=== PATIENT | male | born 1980 | race Caucasian/White ===

== ENCOUNTER 2016-11-21 08:00 | Emergency (ER) | payer MEDICARE, OTHER ==
[~2016-11-21] VITALS: Ht 193 cm; Wt 70.0 kg
[~2016-11-21 08:00] MED LIST: AMLO5TAB2 PO; CALC667S PO; CARV25TA2 PO; CHOL200025 PO; GLYC1TAB11 PO; INSLIS SUBQ; LIPA1CAP PO; LOPE2CAP PO; METO5TAB78 PO; NEPHVIT PO; ONDA4TAB6 PO; PANT20TA2 PO; PHOSLO PO; PROC25SU3 RC; PROM25TA14 PO; TACR1CAP8 PO
[2016-11-21 08:02] VITALS: BP 110/72; PULSE 85; RESP 16; O2SAT 100
--- NOTE | 2016-11-21 08:29 | ED.REPORT ---
HPI-General Illness Date of Service Nov 21, 2016 ED Provider: Diogo Callahan MD The patient is a 35 year old male with history of end stage renal disease on hemodialysis MWF, primary sclerosing cholangitis s/p liver transplant, diabetes mellitus type I, chronic anemia, GERD, pancreatic insufficiency, and hypertension, who presents to the emergency department with multiple complaints. Over the last 2-3 weeks he has not been himself. He has been sleeping a lot and not able to get up and complete his normal daily activities. He has also experienced nausea, vomiting, diarrhea, decreased appetite, abdominal pain, and back pain. He reports some blood in his emesis. He denies black, tarry or bloody stools. His symptoms have drastically worsened over the last 2 days. He has felt like he cannot stand up without feeling like he is going to pass out. He has been using his cane to ambulate which is not normal for him. He last dialyzed on Saturday and is due for dialysis today. Station Agent: . Nursing Notes Stated Complaint: NAUSEA/VOMITING Chief Complaint: Male Abdominal Pain Nursing Notes Reviewed: Yes Allergies: Coded Allergies: cinacalcet (Verified Allergy, Severe, ANAPHYLAXIS, 07/20/16) Sulfa (Sulfonamide Antibiotics) (Verified Allergy, Unknown, UNKNOWN, 07/20) Scheduled ([Phoslo]) 2 TAB PO TIDWM Amlodipine (Amlodipine) 5 Mg Tablet 5 MG PO ASDIRECTED Calcium Acetate (Phoslyra) 667 Mg/5 Ml Solution 667 MG PO TIDWM Cholecalciferol (Vitamin D3) (Vitamin D3) 2,000 Unit Tablet 2,000 UNIT PO DAILY Glycopyrrolate (Glycopyrrolate) 1 Mg Tablet 0.5 MG PO TID Insulin Human Lispro (HumaLOG U100 Insulin Vial) 100 Unit/Ml Unit U SUBQ SS Blood Sugar Lispro Correction <151 0 units 151-175 1 unit 176-200 2 units 201-225 3 units 226-250 4 units 251-275 5 units 276-300 6 units 301-325 7 units 326-350 8 units 351-375 9 units 376-400 10 units >400 12 units Check blood sugars before meals and at bedtime. Use correction factor only before meals. Lipase/Protease/Amylase (Sharath DOVE) 1 Each Capsule. 8 CAPSULE PO TIDWM Pantoprazole DR (Pantoprazole DR) 20 Mg Tablet.dr 20 MG PO DAILY Tacrolimus (Tacrolimus) 1 Mg Capsule 2 MG PO BID Vitamin B Complex/Vit C (Matilde-Bhavna Tablet) 1 Tab Tab 1 TAB PO DAILY Scheduled PRN Carvedilol (Carvedilol) 25 Mg Tablet 12.5 MG PO DAILY PRN PRN elevated blood pressure Loperamide (Loperamide) 2 Mg Capsule 2 MG PO Q4 PRN PRN For Diarrhea or Loose Stool Metoclopramide (Reglan) 5 Mg Tablet 10 PO ACHS PRN PRN For Nausea Ondansetron (Zofran) 4 Mg Tablet 4 MG PO Q6 PRN PRN For Nausea Prochlorperazine Maleate (Prochlorperazine Suppository) 25 Mg Supp.rect 25 MG RC PRN For Nausea/Vomiting Promethazine (Promethazine) 25 Mg Tablet 25 MG PO Q4 PRN PRN For Nausea/ Vomiting General Time Seen by MD: 08:28 Chief Complaint Multip medical complaints Hx Obtained From: Patient, Spouse Arrived By: Walk-in Sudden in Onset?: No Onset Occurred: More than a week ago... Symptom Duration: Since onset Location: : Abdomen: Back Quality: Painful Severity: Current: Pain level 6 out of 10 Severity: Maximum: Severe Recent Healthcare: No recent hospitalization, Recent doctor visit Similar Sx Previous: Yes Past Medical History Past Medical History Notes: Station Agent: Dr. Osorio Past Medical History End-stage renal disease on hemodialysis-MWF. Still produces a "good amount" of urine. Primary sclerosing cholangitis, status post liver transplant, on chronic immunosuppressants Type I diabetes mellitus. Remarkably, he says he manages this with diet alone at this time. Chronic anemia GERD Pancreatic insufficiency, chronic Hypertension Reports: Depression Past Surgical History Liver transplant 2013 at [facility] her[facility] Left arm shunt placement Family History Noncontributory Smoking History Smoker Current Status UNK Social History Other Social History: Poor social support, , Local resident Ambulatory Status Independent Review of Systems +decreased appetite Full Review of Systems Constitutional: Reports: Fatigue, Malaise GI: Reports: Abdominal pain, Anorexia, Diarrhea, Hematemesis, Nausea, Vomiting , Denies: Bloody/tarry stool, Hematochezia, Melena Musculoskeletal: Reports: Back pain Neurologic: Reports: Lightheaded, Problem walking Complete sys rev & neg: except as marked. Physical Exam Vital Signs Vital Signs Date Time Temp Pulse Resp B/P Pulse Ox O2 Delivery O2 Flow Rate FiO2 11/21/16 09:50 79 14 113/71 98 Room Air 11/21/16 08:02 36.8 85 16 110/72 100 Room Air Initial VS: Reviewed Head / Eyes: Atraumatic, Normocephalic, PERRL ENT: Mucous membranes moist, Conjunctiva normal, No scleral icterus Neck: Supple, Non-tender, Full range of motion Respiratory: Breath sounds normal, Clear to auscultation, No respiratory distress Lymphatic: No lymphadenopathy Extremities: Vascular intact, Neuro intact, No swelling, No tenderness Skin: Warm, Dry, No cyanosis Neurologic: Alert, Oriented, Nonfocal Psychiatric: Mood/affect normal, Behavior normal, Normal thought content General/Constitutional: Awake, Alert, Cooperative Cardiovascular: Heart rate NL, Regular rhythm Coarse 4/6 systolic murmur heard best at the left 2nd intercostal space. Abdomen: Soft, No guarding, No rebound, BS normoactive, No distention, No hernia, No palpable mass, No pulsatile mass Tenderness/Guarding/Rebound: Positive: Tender diffuse Lower Extremity / Pelvis / MS: Neurologic intact, Vascular intact, No edema Rectum / Perineum: No gross blood Rectal for Blood: Positive: Blood - occult heme + Brown stool present. Interpretation & Diagnostics Lab Results Interpretation Result Diagram: 11/21/16 0835 11/21/16 0835 Test 11/21/16 08:35 11/21/16 09:00 White Blood Count 5.1th/mm3 (3.8-10.1) Red Blood Count 3.44mil/mm3 (4.40-5.80) Hemoglobin 10.1g/dL (13.8-17.2) Hematocrit 30.3% (41.0-50.0) Mean Corpuscular Volume 88.1fL (81-100) Mean Corpuscular Hemoglobin 29.4pg (27.0-35.0) Mean Corpuscular Hemoglobin Concent 33.3% (32.0-37.0) Red Cell Distribution Width 14.2% (12.3-15.4) Platelet Count 103bil/L (150-400) Neutrophils (%) (Auto) 62.4% (40-74) Lymphocytes (%) (Auto) 19.1% (14-46) Monocytes (%) (Auto) 15.2% (4-12) Eosinophils (%) (Auto) 2.7% (0-5) Basophils (%) (Auto) 0.4% (0-3) Sodium Level 128mEq/L (134-144) Potassium Level 5.5mEq/L (3.5-5.2) Chloride Level 89mEq/L (97-108) Carbon Dioxide Level 15mmol/L (18-29) Blood Urea Nitrogen 62mg/dL (6-20) Creatinine 7.48mg/dL (0.76-1.27) Estimat Glomerular Filtration Rate 9mL/min (>59) Glucose Level 128mg/dL (60-99) Calcium Level 8.1mg/dL (8.5-10.1) Magnesium Level 1.9mg/dL (1.6-2.6) Total Bilirubin 0.4mg/dL (0.0-1.2) Aspartate Amino Transf (AST/SGOT) 10U/L (0-50) Alanine Aminotransferase (ALT/SGPT) 23U/L (0-44) Alkaline Phosphatase 110U/L (25-150) Total Protein 5.9g/dL (6.4-8.4) Albumin 3.4g/dL (3.4-5.0) Lipase 4U/L (13-60) Hold Lynn Top Tube Received (Received) Re-Eval/Medical Decision Source of Hx: Old records, Family Time of Eval: 09:58 Re-Evaluation/Progress Note: The patient is feeling better after the medications were given. Time of Eval: 10:36 Re-Evaluation/Progress Note: Discussed plan for discharge. All questions were addressed. Consultation : Referral / Consult Name: James Osorio MD Consulted With: Nephrology Requested Call at: 10:21 Call Returned at: 10:25 Health Physics Technician: Will see in office, Agrees with eval, Agrees with plan Note: He has a Fistulogram scheduled later this week and a parathyroidectomy in mid December. He is okay with the patient being discharged to get his dialysis. Counseled Regarding: Diagnosis, Lab results, Need for follow-up, When/why to return to ED Discharge & Departure Primary Impression: Fatigue Fatigue type: unspecified Qualified Code: R53.83 - Other fatigue Additional Impressions: Vomiting Vomiting type: unspecified Vomiting Intractability: non-intractable Nausea presence: with nausea Qualified Code: R11.2 - Nausea with vomiting, unspecified Renal failure Disposition: Home Discharge Condition All VS Reviewed: Yes Condition: Stable Additional Instructions: Thank you for entrusting us with your care today. Your labs results today are reassuring. There were no life threatening causes for your symptoms discovered today. Make sure to go to dialysis after your are discharged. Keep your appointment for the fistulogram later this week. Return to the emergency department for any new or concerning symptoms. Do not take lisinopril or carvedilol until your blood pressure is much higher. Referrals: Praveen Mccann MD (PCP) Scribe Attestation Portions of this note were transcribed by Janel Ibanez. I, Dr. Callahan personally performed the history, physical exam and medical decision-making; I reviewed and confirmed the accuracy of the information in the transcribed note. Signed by: Joelle Mahoney, 11/21/2016 at 1045. copies to: Praveen Mccann MD, Kirk H MD Nov 21, 2016 08:29 Janel Ibanez Nov 21, 2016 08:36
[2016-11-21] MEDS ORDERED: Pantoprazole 4 mg/mL 10 mL Inj IVPUSH ONE (08:30)
[2016-11-21] MEDS ORDERED: Ondansetron 2 mg/mL 2 mL Inj IVPUSH PRN (08:30)
[2016-11-21 08:49] LABS: BASOPHILS % (AUTO) 0.4 % (0-3); EOSINOPHILS % (AUTO) 2.7 % (0-5); MONOCYTES % (AUTO) 15.2 % (4-12); Mean Corpuscular Hemoglobin 29.4 pg (27.0-35.0); Mean Corpuscular Volume 88.1 fL (81-100); NEUTROPHILS % (AUTO) 62.4 % (40-74); Platelet Count 103 bil/L (150-400)
[2016-11-21] MEDS: HYDROmorphone 1 mg/mL Inj IVPUSH PRN ×2 (08:55→09:26)
[2016-11-21 09:13] LABS: Magnesium 1.9 mg/dL (1.6-2.6)
[2016-11-21 09:50] VITALS: BP 113/71; PULSE 79; RESP 14; O2SAT 98
[2016-11-21 11:34] VITALS: BP 124/80; PULSE 83; RESP 14; O2SAT 98
== END 2016-11-21 11:03 | disposition home or self-care (01) ==
LOC: SED 08:00
DX: R53.83 Other fatigue (principal); R11.2 Nausea with vomiting, unspecified; I12.0 Hypertensive chronic kidney disease with stage 5 chronic kidney disease or end stage renal disease; N18.6 End stage renal disease; E10.29 Type 1 diabetes mellitus with other diabetic kidney complication; K21.9 Gastro-esophageal reflux disease without esophagitis; D64.9 Anemia, unspecified; K83.0 Cholangitis; K86.89 Other specified diseases of pancreas; Z99.2 Dependence on renal dialysis; Z94.4 Liver transplant status; Z79.4 Long term (current) use of insulin; Z88.2 Allergy status to sulfonamides; Z88.8 Allergy status to other drugs, medicaments and biological substances
CPT/HCPCS: 36415; 80053; 82948; 83690; 83735; 85025; 96374; 96375; 99285; J1170; J2405

== ENCOUNTER 2016-12-04 15:26 | Emergency (ER) | payer MEDICARE, OTHER ==
[~2016-12-04] VITALS: Ht 193 cm; Wt 70.0 kg
[2016-12-04 15:33] VITALS: BP 145/86; PULSE 67; RESP 16; O2SAT 100
[2016-12-04] MEDS ORDERED: Ondansetron 2 mg/mL 2 mL Inj IVPUSH ONE (15:55)
[2016-12-04 16:08] LABS: BASOPHILS % (AUTO) 0.7 % (0-3); MONOCYTES % (AUTO) 8.3 % (4-12); Mean Corpuscular Volume 88.3 fL (81-100); NEUTROPHILS % (AUTO) 70.4 % (40-74); Platelet Count 124 bil/L (150-400)
[2016-12-04 16:27] LABS: Magnesium 1.6 mg/dL (1.6-2.6)
--- NOTE | 2016-12-04 16:56 | DRSVH ---
PROCEDURE: CT KUB ([id number]) INDICATIONS: Bilateral flank pain. TECHNIQUE: Noncontrast 5 mm thick sections acquired from the diaphragms to the symphysis. 5 mm thick coronal an d sagittal reformats were then performed. For radiation dose reduction, the following was used: aut omated exposure control, adjustment of mA and/or kV according to patient size. COMPARISON: [facility], CT, ABD/PELVIS W/CON ([facility]), 12/16/2014, 13:12. [facility] ([facility]), 03/06/2013, 14:23. FINDINGS: Image quality: Excellent. Lung bases: Lung bases are clear. Heart size is normal. Urinary system: Both kidneys are normal in size. There are small foci of calcification in kidneys bi laterally compatible with nonobstructive renal calculi and/or vascular calcifications. No hydronephr osis. Mild bilateral perinephric fat stranding. Both ureters appear non-dilated throughout their exp ected courses. Bladder wall is mildly thickened concentrically; no calcified bladder stones. Other solid organs: Liver and spleen are normal in size. There is gas within liver parenchyma in a branching pattern as seen on the prior examination, most likely pneumobilia. The portal vein is dilat ed. Gallbladder is surgically absent. Pancreas is atrophic with punctate calcifications consistent w ith chronic pancreatitis. No adrenal nodules. Peritoneum and bowel: Unenhanced bowel loops demonstrate normal wall thickness and caliber. No free fluid or air. Nodes and vessels: There is a mildly enlarged left para-aortic lymph node measuring 1.4 cm. Aorta and inferior vena cava are normal in caliber. There is extensive splenic artery atherosclerosis. Abdominal wall: No ventral hernias. There is diffuse bilateral edema. Pelvis: No free pelvic fluid. No inguinal hernias or adenopathy. Bones: No suspicious bony lesions. No vertebral body compression fractures. IMPRESSION: 1. There are bilateral small renal calcifications, likely secondary to combination of nonobstructive stones and vascular ossifications. No hydronephrosis. Mild bilateral perinephric stranding is present . 2. There is mild concentric bladder wall thickening suggesting cystitis. 3. Gas within the liver parenchyma in a branching pattern, which was seen on prior examinations and m ost likely caused by pneumobilia. Less likely, this could represent portal venous gas. 4. Dilated portal vein and enlarged spleen, suggesting portal hypertension. 5. Chronic pancreatitis and pancreatic atrophy. 6. Mildly enlarged retroperitoneal lymph node. This finding is nonspecific and requires clinical alessandro elation and followup. Dictated by: Maureen Gregory M.D. on 12/04/2016 at 16:46 Transcribed by: ELIJAH on 12/04/2016 at 16:56 Approved by: Maureen Gregory M.D. on 12/04/2016 at 21:37
[2016-12-04] MEDS: HYDROmorphone 0.5 mg/0.5 mL iSecure Syringe IVPUSH PRN ×2 (17:00→17:32)
--- NOTE | 2016-12-04 17:11 | ED.REPORT ---
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 He describes the pain as if someone punched his pelvis from the back. The pain does not radiate anywhere else. He has also experienced nausea, increased urinary urgency and frequency, and dysuria. His symptoms are consistent with previous kidney stones. He has never required surgery for kidney stones. He denies fever, chills, vomiting, diarrhea or hematuria. Nursing Notes Stated Complaint: URINARY PROBLEMS, SENT FROM URGENT Chief Complaint: Male Abdominal Pain Nursing Notes Reviewed: Yes Allergies: Coded Allergies: cinacalcet (Verified Allergy, Severe, ANAPHYLAXIS, 07/20/16) Sulfa (Sulfonamide Antibiotics) (Verified Allergy, Unknown, UNKNOWN, 07/20) Scheduled ([Phoslo]) 2 TAB PO TIDWM Amlodipine (Amlodipine) 5 Mg Tablet 5 MG PO ASDIRECTED Calcium Acetate (Phoslyra) 667 Mg/5 Ml Solution 667 MG PO TIDWM Cholecalciferol (Vitamin D3) (Vitamin D3) 2,000 Unit Tablet 2,000 UNIT PO DAILY Glycopyrrolate (Glycopyrrolate) 1 Mg Tablet 0.5 MG PO TID Insulin Human Lispro (HumaLOG U100 Insulin Vial) 100 Unit/Ml Unit U SUBQ SS Blood Sugar Lispro Correction <151 0 units 151-175 1 unit 176-200 2 units 201-225 3 units 226-250 4 units 251-275 5 units 276-300 6 units 301-325 7 units 326-350 8 units 351-375 9 units 376-400 10 units >400 12 units Check blood sugars before meals and at bedtime. Use correction factor only before meals. Lipase/Protease/Amylase (Zenpep DR) 1 Each Capsule.dr 8 CAPSULE PO TIDWM Pantoprazole (Pantoprazole DR) 20 Mg Tablet. 20 MG PO DAILY Tacrolimus (Tacrolimus) 1 Mg Capsule 2 MG PO BID Tamsulosin (Flomax) 0.4 Mg Capsule 0.4 MG PO DAILY Vitamin B Complex/Vit C (Matilde-Bhavna Tablet) 1 Tab Tab 1 TAB PO DAILY Scheduled PRN Carvedilol (Carvedilol) 25 Mg Tablet 12.5 MG PO DAILY PRN PRN elevated blood pressure Loperamide (Loperamide) 2 Mg Capsule 2 MG PO Q4 PRN PRN For Diarrhea or Loose Stool Metoclopramide (Reglan) 5 Mg Tablet 10 PO ACHS PRN PRN For Nausea Ondansetron (Zofran) 4 Mg Tablet 4 MG PO Q6 PRN PRN For Nausea Prochlorperazine Maleate (Prochlorperazine Suppository) 25 Mg Supp.rect 25 MG RC PRN For Nausea/Vomiting Promethazine (Promethazine) 25 Mg Tablet 25 MG PO Q4 PRN PRN For Nausea/ Vomiting General Time Seen by MD: 15:47 Chief Complaint Other (flank pain) Hx Obtained From: Patient Arrived By: Walk-in Onset Occurred: More than a week ago... 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 Osorio Past Medical History End-stage renal disease on hemodialysis-MWF. Still produces a "good amount" of urine. Primary sclerosing cholangitis, status post liver transplant, on chronic immunosuppressants Type I diabetes mellitus. Remarkably, he says he manages this with diet alone at this time. Chronic anemia GERD Pancreatic insufficiency, chronic Hypertension Kidney stones Reports: Depression Past Surgical History Liver transplant 2013 at [facility] Left arm shunt placement Family History Noncontributory Smoking History Smoker Current Status UNK Social History Other Social History: Poor social support, , Local resident Ambulatory Status Independent Review of Systems Full Review of Systems Constitutional: Denies: Chills, Fever GI: Reports: Nausea, Denies: Diarrhea, Vomiting Male: Reports Dysuria, Reports Flank pain, Reports Urinary frequency, Reports Urinary urgency, Denies Hematuria, Denies Testicular pain Musculoskeletal: Reports: Back pain, Denies: Extremity pain Complete sys rev & neg: except as marked. Physical Exam Vital Signs Vital Signs Date Time Temp Pulse Resp B/P Pulse Ox O2 Delivery O2 Flow Rate FiO2 12/04/16 18:25 36.9 68 16 138/88 98 Room Air 12/04/16 17:48 36.9 68 138/88 98 Room Air 12/04/16 15:33 36.2 67 16 145/86 100 Room Air Initial VS: Reviewed Head / Eyes: Atraumatic, Normocephalic, PERRL ENT: Mucous membranes moist, Conjunctiva normal, No scleral icterus Neck: Supple, Non-tender, Full range of motion Extremities: Vascular intact, Neuro intact, No swelling, No tenderness Skin: Warm, Dry, No cyanosis Neurologic: Alert, Oriented, Nonfocal Psychiatric: Mood/affect normal, Behavior normal, Normal thought content General/Constitutional: Awake, Alert, Cooperative Respiratory / Chest: Atraumatic, Breath sounds NL, No respiratory distress, No rales, No rhonchi, No wheezing Cardiovascular: Heart rate NL, Regular rhythm, No rubs, Pulses = bilaterally Heart Sounds / Murmur: Positive: Systolic murmur present.. (harsh) Abdomen: Atraumatic, Soft, Non-tender, No guarding, No rebound, BS normoactive , No distention, No hernia, No palpable mass, No pulsatile mass Back: Inspection NL, Full range of motion, No midline vertebral tend, No paraspinal tenderness, No CVA tenderness Upper Extremities Dialysis fistula in left forearm with a good palpable thrill, no redness or warmth. Interpretation & Diagnostics CT KUB IMPRESSION: 1. There are bilateral small renal calculi, likely secondary to combination of nonobstructive stones and vascular ossifications. No hydronephrosis. Mild bilateral perinephric stranding is present. 2. There is mild concentric bladder wall thickening suggesting cystitis. 3. Cholecystectomy. There is pneumobilia. 4. Dilated portal vein and enlarged spleen suggesting portal hypertension. 5. Chronic pancreatitis and pancreatic atrophy. 6. Mildly enlarged retroperitoneal lymph node. This finding is nonspecific and requires clinical correlation and followup. Dictated by: Maureen Gregory M.D. on 12/04/2016 at 16:46 Lab Results Interpretation Result Diagram: 12/04/16 1545 12/04/16 1545 Test 12/04/16 15:45 White Blood Count 5.6th/mm3 (3.8-10.1) Red Blood Count 3.34mil/mm3 (4.40-5.80) Hemoglobin 9.7g/dL (13.8-17.2) Hematocrit 29.5% (41.0-50.0) Mean Corpuscular Volume 88.3fL (81-100) Mean Corpuscular Hemoglobin 29.0pg (27.0-35.0) Mean Corpuscular Hemoglobin Concent 32.9% (32.0-37.0) Red Cell Distribution Width 13.9% (12.3-15.4) Platelet Count 124bil/L (150-400) Neutrophils (%) (Auto) 70.4% (40-74) Lymphocytes (%) (Auto) 16.4% (14-46) Monocytes (%) (Auto) 8.3% (4-12) Eosinophils (%) (Auto) 4.0% (0-5) Basophils (%) (Auto) 0.7% (0-3) Sodium Level 130mEq/L (134-144) Potassium Level 4.8mEq/L (3.5-5.2) Chloride Level 92mEq/L (97-108) Carbon Dioxide Level 22mmol/L (18-29) Blood Urea Nitrogen 28mg/dL (6-20) Creatinine 4.63mg/dL (0.76-1.27) Estimat Glomerular Filtration Rate 16mL/min (>59) Glucose Level 205mg/dL (60-99) Calcium Level 7.1mg/dL (8.5-10.1) Magnesium Level 1.6mg/dL (1.6-2.6) Total Bilirubin 0.3mg/dL (0.0-1.2) Aspartate Amino Transf (AST/SGOT) 16U/L (0-50) Alanine Aminotransferase (ALT/SGPT) 22U/L (0-44) Alkaline Phosphatase 124U/L (25-150) Total Protein 6.0g/dL (6.4-8.4) Albumin 3.4g/dL (3.4-5.0) Lipase 4U/L (13-60) Re-Eval/Medical Decision Med Decision/Clinical Course The patient is a 35 year old male with history of end-stage renal disease on hemodialysis MWF, 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 He describes the pain as if someone punched his pelvis from the back. The pain does not radiate anywhere else. He has also experienced nausea, increased urinary urgency and frequency, and dysuria. His symptoms are consistent with previous kidney stones. He has never required surgery for kidney stones. He denies fever, chills, vomiting, diarrhea or hematuria. Obtained UA from urgent care from earlier today. Demonstrates trace blood, otherwise no signs of infection. CT KUB IMPRESSION: 1. There are bilateral small renal calculi, likely secondary to combination of nonobstructive stones and vascular ossifications. No hydronephrosis. Mild bilateral perinephric stranding is present. 2. There is mild concentric bladder wall thickening suggesting cystitis. 3. Cholecystectomy. There is pneumobilia. 4. Dilated portal vein and enlarged spleen suggesting portal hypertension. 5. Chronic pancreatitis and pancreatic atrophy. 6. Mildly enlarged retroperitoneal lymph node. This finding is nonspecific and requires clinical correlation and followup. CBC: no leukocytosis, stable hct of 29.5, platelets 124, CMP: Na stable at 130, K 4.8, BUN 28, creatinine 4.63 stable, no significant electrolyte abnormalities. UA: unconvincing for UTI, 0-2 RBCs. Here in the emergency department the patient was afebrile, hemodynamically stable and in no apparent distress. He received Zofran for pain and hydromorphone for nausea. Serial abdominal examinations were completely benign and without any signs suggestive of an acute surgical process. He reported significant symptomatic improvement. Of note he does have bilateral small renal calculi I suspect that he may have passed some of these as his pain is quite similar to prior kidney stones. No evidence at this time of urinary tract infection. Provided with prescription for pain medication, Flomax and urology referral. Advised to use urine strainer. Prior to discharge follow-up and return precautions were reviewed in detail with the patient who verbalized understanding and agreement with the plan. The patient was discharged in stable condition. Source of Hx: Old records Time of Eval: 17:59 Re-Evaluation/Progress Note: Discussed results, diagnosis, and plan for discharge. All questions were addressed. Counseled Regarding: Diagnosis, Lab results, Need for follow-up, When/why to return to ED Discharge & Departure Primary Impression: Kidney stones Additional Impressions: Hematuria Renal colic Hemodialysis patient Disposition: Home Discharge Condition All VS Reviewed: Yes Condition: Stable Patient Instructions: Renal Colic (ED) Additional Instructions: Thank you for seeking care at the emergency room. It is difficult for us to make definitive diagnoses in the ED but we believe that you are experiencing pain related to kidney stones. Our primary goal today in the ED was to evaluate you for any life-threatening conditions. Your evaluation was reassuring. You will be discharged with a prescription for oxycodone and Flomax. Use the urine strainer to catch the stones. You should follow-up with your urologist in the next week. There were some enlarged lymph nodes seen on your CT scan as well. This should be followed up with your primary care provider. You should return to the ED immediately if you develop increased pain, inability to urinate, fevers, chills, vomiting, or any other concerning signs or symptoms. Thank you for letting us partake in your care today. Narcotic Pain Medicine You have been prescribed a narcotic for pain relief. These drugs are usually combined with acetaminophen (Tylenol#3, Percocet, Darvocet, Anexsia, Vicodin) or aspirin (Empirin#3, Percodan, Synalogs-DC) for increased effect. Narcotics act on the central nervous system to reduce pain; they also impair mental alertness and physical abilities. We advise you not to drink alcohol, drive a car, or operate dangerous equipment when you are taking these drugs. You can lessen stomach irritation from your medicine by taking it with meals or a full glass of water. Common side effects of narcotics are: Nausea and vomiting, heartburn, constipation, dizziness, sleepiness, and mood changes. If you have bothersome side effects or symptoms of an allergic reaction (itching, hives, rash), stop taking your medicine and call your doctor or the emergency room right away. Please keep your narcotic medicine well out of the reach of children. Referrals: Praveen Mccann MD (PCP) Scribe Attestation Portions of this note were transcribed by Janel Ibanez. I, Dr. Guthrie personally performed the history, physical exam and medical decision-making; I reviewed and confirmed the accuracy of the information in the transcribed note. Signed by: Joelle Mahoney, 12/04/2016 at 1815. copies to: Praveen Mccann MD, Beck O MD Dec 04, 2016 17:11 Janel Ibanez Dec 04, 2016 17:36
[2016-12-04 17:48] VITALS: BP 138/88; PULSE 68; O2SAT 98
[2016-12-04] MEDS ORDERED: TAMS0.4C98 PO (18:01)
[2016-12-04 18:25] VITALS: BP 138/88; PULSE 68; RESP 16; O2SAT 98
== END 2016-12-04 18:27 | disposition home or self-care (01) ==
LOC: SED 15:26
DX: N20.0 Calculus of kidney (principal); I12.0 Hypertensive chronic kidney disease with stage 5 chronic kidney disease or end stage renal disease; E10.22 Type 1 diabetes mellitus with diabetic chronic kidney disease; N18.6 End stage renal disease; K21.9 Gastro-esophageal reflux disease without esophagitis; Z99.2 Dependence on renal dialysis; Z79.4 Long term (current) use of insulin; Z88.2 Allergy status to sulfonamides; Z88.8 Allergy status to other drugs, medicaments and biological substances
CPT/HCPCS: 36415; 74176; 80053; 83690; 83735; 85025; 96374; 96375; 96376; 99285; J1170; J2405

== ENCOUNTER 2017-01-06 07:58 | Emergency (ER) | payer MEDICARE, OTHER ==
[~2017-01-06] VITALS: Ht 193 cm; Wt 71.2 kg
[2017-01-06] VITALS (16 sets, daily range): BP systolic 103–195; BP diastolic 60–102; PULSE 70–109; RESP 15–42; O2SAT 80–100
[~2017-01-06 07:58] MED LIST changes: +TAMS0.4C98 PO
--- NOTE | 2017-01-06 08:04 | ED.REPORT ---
HPI-Dyspnea / Wheezing Date of Service January 06, 2017 ED Provider: 36 y/o male with a hx of kidney failure, critical aortic stenosis, DM and HTN presents to the ED complaining of SOB, onset this morning. Pt went for dialysis on Saturday and was feeling fine until this morning. Pt also had a parathyroidectomy last week. Associated sx include productive cough with pink sputum and diaphoresis. He denies abdominal pain and dysuria. As per his mother , the pt is able to urinate once a day. Pt has an appointment at to discuss surgery for aortic stenosis. Nursing Notes Stated Complaint: HARD TIME BREATHING Nursing Notes Reviewed: Yes Allergies: Coded Allergies: cinacalcet (Verified Allergy, Severe, ANAPHYLAXIS, 07/20/16) Sulfa (Sulfonamide Antibiotics) (Verified Allergy, Unknown, UNKNOWN, 07/20) Scheduled ([Phoslo]) 2 TAB PO TIDWM Amlodipine (Amlodipine) 5 Mg Tablet 5 MG PO ASDIRECTED Calcium Acetate (Phoslyra) 667 Mg/5 Ml Solution 667 MG PO TIDWM Cholecalciferol (Vitamin D3) (Vitamin D3) 2,000 Unit Tablet 2,000 UNIT PO DAILY Glycopyrrolate (Glycopyrrolate) 1 Mg Tablet 0.5 MG PO TID Insulin Human Lispro (HumaLOG U100 Insulin Vial) 100 Unit/Ml Unit U SUBQ SS Blood Sugar Lispro Correction <151 0 units 151-175 1 unit 176-200 2 units 201-225 3 units 226-250 4 units 251-275 5 units 276-300 6 units 301-325 7 units 326-350 8 units 351-375 9 units 376-400 10 units >400 12 units Check blood sugars before meals and at bedtime. Use correction factor only before meals. Lipase/Protease/Amylase (Zenpep ) 1 Each Capsule. 8 CAPSULE PO TIDWM Pantoprazole (Pantoprazole ) 20 Mg Tablet. 20 MG PO DAILY Tacrolimus (Tacrolimus) 1 Mg Capsule 2 MG PO BID Tamsulosin (Flomax) 0.4 Mg Capsule 0.4 MG PO DAILY Vitamin B Complex/Vit C (Matilde-Bhavna Tablet) 1 Tab Tab 1 TAB PO DAILY Scheduled PRN Carvedilol (Carvedilol) 25 Mg Tablet 12.5 MG PO DAILY PRN PRN elevated blood pressure Loperamide (Loperamide) 2 Mg Capsule 2 MG PO Q4 PRN PRN For Diarrhea or Loose Stool Metoclopramide (Reglan) 5 Mg Tablet 10 PO ACHS PRN PRN For Nausea Ondansetron (Zofran) 4 Mg Tablet 4 MG PO Q6 PRN PRN For Nausea Prochlorperazine Maleate (Prochlorperazine Suppository) 25 Mg Supp.rect 25 MG RC PRN For Nausea/Vomiting Promethazine (Promethazine) 25 Mg Tablet 25 MG PO Q4 PRN PRN For Nausea/ Vomiting General Time Seen by MD: 08:03 Chief Complaint Shortness of breath Hx Obtained From: Patient Arrived By: Walk-in Sudden in Onset?: Yes Onset Occurred: Just prior to arrival Symptom Duration: Since onset Severity: Current: No pain currently Severity: Maximum: No pain Recent Healthcare: Recent doctor visit Similar Sx Previous: No Past Medical History 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 Still produces a "good amount" of urine. Primary sclerosing cholangitis, status post liver transplant, on chronic immunosuppressants Type I diabetes mellitus. Remarkably, he says he manages this with diet alone at this time. Chronic anemia GERD Pancreatic insufficiency, chronic Hypertension Kidney stones Reports: Depression Past Surgical History Liver transplant 2013 at Ventral hernia Left arm shunt placement Family History Noncontributory Smoking History Smoker Current Status UNK Social History Other Social History: Poor social support, , Local resident Ambulatory Status Independent Review of Systems Reports: Productive cough, pink Respiratory: Reports: Shortness of breath Skin: Reports Diaphoresis Complete sys rev & neg: except as marked. GI: Denies: Abdominal pain Female: Denies: Dysuria Physical Exam + AV fistula on left arm. Initial Vital Signs Vital Signs (First) Date Time Temp Pulse Resp B/P Pulse Ox O2 Delivery O2 Flow Rate FiO2 01/06/17 08:06 36.5 109 38 195/94 80 Nasal Cannula 6 01/06/17 10:04 100 Initial VS: Reviewed Head / Eyes: Atraumatic, Normocephalic, PERRL Abdomen / GI: Soft, Non-tender, No guarding, No rebound, No distention Extremities: Vascular intact, Neuro intact, No swelling, No tenderness Neurologic: Alert, Oriented, Nonfocal General/Constitutional: Awake, Alert Distress / Hydration: Positive: Distress severe Pt is thin and frail. He is answering in one word sentences. Respiratory / Chest: Atraumatic Rales / Rhonchi: Positive: Rales diffuse Cardiovascular: Heart rate NL, Regular rhythm, Heart sounds NL, No gallop, No murmurs No lower extremity edema Skin: Atraumatic, Color NL, No rash, Warm, Dry Interpretation & Diagnostics Lab Results Interpretation Result Diagram: 01/06/17 0807 01/06/17 0807 Test 01/06/17 08:07 White Blood Count 13.6th/mm3 (3.8-10.1) Red Blood Count 4.36mil/mm3 (4.40-5.80) Hemoglobin 12.6g/dL (13.8-17.2) Hematocrit 38.6% (41.0-50.0) Mean Corpuscular Volume 88.5fL (81-100) Mean Corpuscular Hemoglobin 28.9pg (27.0-35.0) Mean Corpuscular Hemoglobin Concent 32.6% (32.0-37.0) Red Cell Distribution Width 13.7% (12.3-15.4) Platelet Count 219bil/L (150-400) Neutrophils (%) (Auto) 62.9% (40-74) Lymphocytes (%) (Auto) 19.6% (14-46) Monocytes (%) (Auto) 9.1% (4-12) Eosinophils (%) (Auto) 6.8% (0-5) Basophils (%) (Auto) 0.8% (0-3) Prothrombin Time 11.5sec (8.1-12.5) Prothromb Time International Ratio 1.07ratio Activated Partial Thromboplast Time 32.0sec (22.8-33.0) Sodium Level 133mEq/L (134-144) Potassium Level 6.3mEq/L (3.5-5.2) Chloride Level 93mEq/L (97-108) Carbon Dioxide Level 24mmol/L (18-29) Blood Urea Nitrogen 42mg/dL (6-20) Creatinine 5.14mg/dL (0.76-1.27) Estimat Glomerular Filtration Rate 14mL/min (>59) Glucose Level 199mg/dL (60-99) Lactic Acid Level 1.6mmol/L (0.4-2.0) Calcium Level 9.8mg/dL (8.5-10.1) Magnesium Level 1.9mg/dL (1.6-2.6) Total Bilirubin 0.5mg/dL (0.0-1.2) Aspartate Amino Transf (AST/SGOT) 30U/L (0-50) Alanine Aminotransferase (ALT/SGPT) 14U/L (0-44) Alkaline Phosphatase 468U/L (25-150) Troponin T 0.375ug/L (0.0-0.011) Total Protein 7.8g/dL (6.4-8.4) Albumin 4.2g/dL (3.4-5.0) ECG Interpretation ECG Interpretation: Sinus Rhythm. Rate 97. Probable left ventricular hypertrophy. Prolongeed QT interval. Time: 08:27 Interpreted by: ED physician X-Ray Chest Interpretation Chest Xray Interpretation: IMPRESSION: Multifocal pneumonia. Follow up plain films of the chest are recommended to ensure resolution, and to exclude underlying or central malignancy. Dictated by: Kayli Mayorga M.D. on 01/06/2017 at 8:35 Approved by: Kayli Mayorga M.D. on 01/06/2017 at 8:35 View: Portable, 1 view Interpretation / Wet Read by: Interpret - Radiologist Re-Eval/Medical Decision Med Decision/Clinical Course Patient arrives in profound respiratory distress, he is immediately brought him on room, ABCs and initial clinical history are performed. Patient is immediately placed on BiPAP. Clinical history is strongly suggestive of pulmonary edema likely secondary to end-stage renal disease and severe aortic stenosis. Decision is made to place patient on a nicardipine drip as well as give 80 mg of IV Lasix. BiPAP was started at high settings, the patient's O2 saturation and respiratory rate improved. With nicardipine and Lasix, his blood pressure normalized and was in the 110-120 range. The nicardipine drip was actually discontinued. An ABG was performed and the patient has a mild amount of CO2 retention though it seems that given his improved clinical status, improved mentation, and better story function that his CO2 will continue to improve. We will continue BiPAP. After arrival, cardiology was consulted given the clinical history that was given by the patient, they recommended a stat echocardiogram and did come to the ER and evaluate the patient's bedside. Multiple conversations were had with cardiology regarding this. Additionally nephrology was contacted and had set up to have the patient emergently dialyzed in the intensive care unit. Ultimately the patient will need transfer to [facility]. [facility] has graciously accepted, and the patient will be transferred prior to initiation of dialysis so as not to delay further definitive care. I do not suspect infection in this patient. He has hyperkalemia which will be treated with both calcium and IV dextrose and insulin. He will have frequent Accu-Cheks. He will be transferred via ALS with a nicardipine drip and BiPAP. Re-Evaluation/Progress #1: Time of Eval: 08:33 Re-Evaluation/Progress Note: Pt rechecked. He reports his breathing is getting better after Bipap at a high setting. Re-Evaluation/Progress #2: Time of Eval: 08:55 Re-Evaluation/Progress Note: Pt rechecked. Pt continues to report improvement in sx. Dr. Rodgers in the room to observe the pt. Re-Evaluation/Progress #3: Time of Eval: 09:23 Re-Evaluation/Progress Note: Pt rechecked. Current Vitals: Heart rate: 87 Oxygen Saturation: 100% with Bipap Pulse: 21 BP: 118/79 Re-Evaluation/Progress #4: Time of Eval: 09:34 Re-Evaluation/Progress Note: Pt rechecked. Discussed lab, imaging results and plan to admit for dialysis before transfer. Pt understands and agrees with the plan for admission. All questions addressed. Re-Evaluation/Progress #5: Time of Eval: 09:54 Re-Evaluation/Progress Note: Rechecked pt, who feels "a lot better". Pt is informed he will not be admited but transferred directly. Tried taking the pt off Bipap, but he felt he wanted it back on as he reported SOB without it. Pt's mental status and vital signs have significantly improved. He is able to talk more in full sentences. Consultation #1: Referral / Consult Name: Radha Rodgers MD Consulted With: Cardiology Call Returned at: 08:19 Surgery Teacher: Agrees with eval, Agrees with plan Note: Dr. Rodgers agrees the pt may need to be transferred. Consultation #2: Referral / Consult Name: Randall Fernandez MD Consulted With: Nephrology Call Returned at: 08:29 Surgery Teacher: Agrees with eval, Agrees with plan Note: Dr. Barclay recommends dialysis before transfering the pt. Consultation #3: Referral / Consult Name: Radha Rodgers MD Consulted With: Cardiology Call Returned at: 09:20 Surgery Teacher: Agrees with eval, Agrees with plan, Accepts admit Note: Dr. Rodgers rechecked the pt. She agrees with the plan to admit the pt for dialysis before transferring him to . Consultation #4: Call Returned at: 09:35 Note: Catrachita at the transfer center in [place] will work on beds. There are no beds available yet. Consultation #5: Referral / Consult Name: Randall Fernandez MD Consulted With: Nephrology Call Returned at: 09:40 Surgery Teacher: Will see patient, Agrees with eval, Agrees with plan, Accepts admit Note: Updated Dr. Fernandez on the pt's status and plan to admit the pt. He recommends calcium gluconate and dialysis. Consultation #6: Call Returned at: 09:45 Surgery Teacher: Will see patient, Agrees with eval, Agrees with plan Note: Dr. Noe Bradley agrees with the plan to transfer the pt for arrival at at noon, without dialysis. Consultation #7: Referral / Consult Name: Randall Fernandez MD Consulted With: Nephrology Call Returned at: 09:50 Surgery Teacher: Agrees with plan Note: Updated Dr. Fernandez on the new plan to transfer pt to directly. He agrees with the plan. Counseled Regarding: Diagnosis, Lab results, Need for transfer Discharge & Departure Impression: Primary Impression: Pulmonary edema Disposition: Transfer, Acute Care Facility Discharge Condition All VS Reviewed: Yes Referrals: Praveen Mccann MD (PCP) Crit Care Except Billable Proc Time Spent: 75-104 minutes Services Performed: Patient management by me, Time spent at bedside, Reviewing test results, Reviewing imaging, Discussing patient care, Documentation in record Critical Care Notes: See MDM Scribe Attestation Portions of this note were transcribed by Ezekiel Thomas. I, , personally performed the history, physical exam and medical decision-making;I reviewed and confirmed the accuracy of the information in the transcribed note. Signed by Joelle Colin. 01/06/17 10:08 copies to: Praveen Mccann MD, Timothy S DO January 06, 2017 08:04 Ezekiel Thomas January 06, 2017 08:22
[2017-01-06] MEDS ORDERED: Ondansetron 2 mg/mL 2 mL Inj IVPUSH PRN (08:15)
[2017-01-06] MEDS ORDERED: NiCARdipine Inj 25 MG in Dextrose 5% 240 ML IV SCH (08:20)
[2017-01-06] MEDS ORDERED: Furosemide 10 mg/mL 10 mL Inj IVPUSH ONE (08:20)
[2017-01-06 08:31] LABS: BASOPHILS % (AUTO) 0.8 % (0-3); Platelet Count 219 bil/L (150-400)
--- NOTE | 2017-01-06 08:37 | DRSVH ---
PROCEDURE: X-RAY CHEST ONE VIEW, PORTABLE ([id number]) INDICATIONS: resp failure TECHNIQUE: One view of the chest was acquired. COMPARISON: None. FINDINGS: Surgical changes and devices: None. Lungs and pleura: No pleural effusions or pneumothorax. There is moderate patchy airspace opacity di ffusely, most predominantly within the left midlung and right lung base. Mediastinum: Mediastinal contours appear normal. Heart size is normal. Bones and chest wall: No suspicious bony lesions. Overlying soft tissues appear unremarkable. IMPRESSION: Multifocal pneumonia. Follow up plain films of the chest are recommended to ensure resolu tion, and to exclude underlying or central malignancy. Dictated by: Kayli Mayorga M.D. on 01/06/2017 at 8:35 Approved by: Kayli Mayorga M.D. on 01/06/2017 at 8:35
[2017-01-06 08:41] LABS: EOSINOPHILS % (AUTO) 6.8 % (0-5); MONOCYTES % (AUTO) 9.1 % (4-12); Mean Corpuscular Hemoglobin 28.9 pg (27.0-35.0); Mean Corpuscular Volume 88.5 fL (81-100); NEUTROPHILS % (AUTO) 62.9 % (40-74)
[2017-01-06 08:42] LABS: INR 1.07 ratio
[2017-01-06 09:01] LABS: Magnesium 1.9 mg/dL (1.6-2.6)
[2017-01-06 09:16] LABS: TROPONIN T 0.375 ug/L (0.0-0.011)
--- NOTE | 2017-01-06 09:43 | ABG ---
DateTimeAnalyzed 09:37:00 -_ pH ____7.332 - 7.350 7.450 pCO2 ___53.1__ -mmHg 35.0 45.0 pO2 418 -mmHg 69.0 116 HCO3- ___27.4__ -mmol/L 22.0 26.0 ABE ____1.3__ -mmol/L -2.0 2.0 tHb ___11.2__ -g/dL O2Hb ___94.7__ -% COHb ____0.7__ -% MetHb ____2.7__ -% sO2 ___98.0__ -% 25.0 FIO2 __100.0__ -% Pressure_Support ___22.0__ -cmH2O PEEP ___16.0__ -cmH2O Drawn By RC - Date/Time Notified____ 09:43:00 -_ Spontaneous_RR ___24.0__ -b/min Oxygen Device 1 ____BIPAP - Notified By RC - Notified Whom Ariel O'Zahra, MD - B 764 -mmHg tO2 ___16.0__ -Vol% Misael test _Positive -
[2017-01-06] MEDS ORDERED: Calcium GLUCOnate 10% (Gm) 1 Gm/10 mL Inj IVPUSH ONE (09:45)
[2017-01-06] MEDS ORDERED: Insulin Human REGular-Omnicell 100 Unit/mL IV ONE (10:05)
--- NOTE | 2017-01-06 10:13 | CONS ---
[address] [address] CONSULTATION REPORT PATIENT: DARON MORA : 1980 MR#: [id number] ADMIT: 01/06/2017 JOB ID: [id number] DATE OF SERVICE: 01/06/2017 CHIEF COMPLAINT: Shortness of breath. HISTORY OF PRESENT ILLNESS: The patient is a 36-year-old man with severe aortic stenosis that came to medical attention December 31, 2016. He has multiple complicated health problems including history of sclerosing cholangitis status post orthotopic liver transplantation and history of end-stage renal disease on hemodialysis 3 days a week. He also developed what sounds like primary hyperparathyroidism and had parathyroidectomy on December 26, 2016 and it sounds like at the time it was not known that he had severe aortic stenosis. After that the parathyroidectomy he has been progressively getting more short of breath. He has been sleeping up in a chair. He denies any chest discomfort or shortness of breath during hemodialysis. Last night he decided to lay flat to go to sleep and woke up gasping for air. He was brought to [facility] Emergency Department and found to have pulmonary edema and severe hypertension and Cardiology is consulted to assist with management. PAST MEDICAL HISTORY: 1. Severe aortic stenosis documented at [facility] via December 31, 2016 echocardiogram. At that time he had normal LV size, moderate concentric left ventricular hypertrophy, moderate systolic dysfunction EF 40%, aortic leaflets were thickened with reduced excursion. The aortic valve was functionally bicuspid. There is severe aortic stenosis and severe insufficiency. Peak velocity across the aortic valve was 4.2 m/sec and mean gradient is 39 mmHg. There is a moderate left-sided pleural effusion calculated valve area 0.92 cm2. Apparently referral was made to [facility] for consideration of transcatheter aortic valve replacement. 2. Primary sclerosing cholangitis status post liver transplant October 25, 2012. 3. Hepatorenal syndrome starting hemodialysis September 30, 2012. He has a functional left radial fistula. 4. History of postoperative anastomotic bowel obstruction requiring Iman-en-Y gastric bypass. 5. Patient dialyzes 3 days a week Saturday, Saturday, and Saturday. 6. Immunosuppression with tacrolimus and azathioprine initially now just on tacrolimus alone. 7. Insulin-dependent diabetes mellitus since age 20. 8. Gastroparesis. 9. Chronic pancreatitis due to gallstones and treated with high-dose pancreatic enzymes. 10. Severe hypertension and profound postural blood pressure changes likely due to autonomic neuropathy. 11. Hypertensive retinopathy. 12. Congenitally bicuspid aortic valve, now severe aortic stenosis. 13. History of kidney stones. 14. Hyperparathyroidism status post parathyroidectomy performed December 29, 2016. 15. Ventral hernia repair. 16. History of candidal esophagitis diagnosed October 2014 via EGD. 17. Chronic diarrhea. SOCIAL HISTORY: The patient is from [place], [place]. He is accompanied today by his mom. He does not smoke. Does not drink alcohol. FAMILY HISTORY: Type 1 diabetes in grandfather and in his mother. Uncle with Crohn disease. Mother with ovarian cancer. REVIEW OF SYSTEMS: Unable to obtain. Patient is in respiratory distress. PHYSICAL EXAMINATION: Vital signs: Temperature 36.5, pulse at this moment in time 100 beats per minute. He is satting 100% on BiPAP, blood pressure was 195/94 on admission and 159/86, pulse 35 beats per minute, satting 100% on BiPAP. Thin, chronically ill-appearing young man tachypneic but giving me a thumbs up and able to nod to questions. Eyes: No scleral icterus. Neck is supple. No carotid bruits. Heart sounds are difficult to auscultate due to BiPAP. Lungs with diminished breath sounds bilaterally and crackles at bases. Abdomen with positive bowel sounds and multiple scars. Extremities no edema. Vascular exam shows a thrill over his left radial artery consistent with fistula. HOME MEDICATIONS: 1. Amlodipine 5 mg twice a day. 2. Abilify 5 mg daily. 3. Carvedilol 25 mg twice a day. 4. Citalopram 40 mg daily. 5. Clonidine 0.1 mg as needed. 6. Marinol 5 mg pills twice a day before meals. 7. Lantus 5 units subcu every night. 8. Lispro sliding scale insulin. 9. Lisinopril 5 mg daily. 10. Reglan 10 mg twice a day. 11. Zofran as needed for nausea. 12. Protonix 40 mg daily. 13. Compazine 5 mg every 8 hours as needed. 14. Tacrolimus 2 mg twice a day. LABORATORY DATA: Reviewed. His hematocrit is 38%. White count 13.6, platelet count 219. The patient's blood glucose is still pending. Lactic acid 1.6. Urine ketones are negative. ASSESSMENT AND PLAN: This is a complex 36-year-old man with multiple health problems including a history of primary sclerosing cholangitis status post orthotopic liver transplant October 2016 and a history of diabetes functionally treated as type 1 and end-stage renal disease recently diagnosed with functionally bicuspid aortic valve and presents with pulmonary edema. This patient is critically ill and needs to be transferred to a higher level of care. The pulmonary edema I think is multifactorial and the big etiology here is his severe aortic stenosis. With a functionally bicuspid valve this patient would benefit from transcatheter aortic valve replacement, but we also need to keep in mind other health problems that could cause pulmonary edema including stress cardiomyopathy after surgery as well as coronary artery disease in this man with diabetes on insulin. Additionally while he does not have any fevers or chills. I think infectious etiology of airspace opacities is unlikely, but possible. Unfortunately management of pulmonary edema is complicated by end-stage renal disease. While he still urinates once a day we cannot easily withdraw fluid from this patient, and I think he would benefit from urgent hemodialysis to stabilize him. I think we should try to avoid intubating him since blood pressure fluctuations during intubation put critical patients at risk for cardiac arrest during intubation. I think once hopefully we can dialyze him and he will feel better and then he can be transferred to a higher level of care. I agree with continuing his antihypertensive drugs including lisinopril, carvedilol, and amlodipine. When he presented he was having hypertensive emergency, systolic blood pressure was greater than 200 mmHg on admission and currently systolic blood pressure in the 140 mmHg range. I am not sure if there was maybe medication noncompliance that could of possibly triggered the hypertensive emergency or if it was simply related to stress. Of course patient dialyzes Saturday, Saturday, Saturday so today is Saturday so this is the longest he has gone without hemodialysis since his parathyroidectomy surgery. Will monitor him closely. Thank you very much for the opportunity to evaluate.
--- NOTE | 2017-01-06 17:55 | DRSVH ---
[facility] [address] [place] [address] Echocardiogram Report Name: DARON MORA RStudy Date: 03/2017 Hospital Exam Location: [facility] Gender: Male : 1980 Age: 36 yrs BP: 196/107 mmHg Reason For Study: Aortic valve stenosis Ordering Physician: HOSPITALIST [facility] Performed By: Emani Box Interpretation Summary Limited echo due to patient's respiratory distress. Only parasternal images were obtained. Normal sinus rhythm. Normal LV size; mild- moderate concentric LVH. Mild global hypokinesis. EF is 40-45%. There are moderately calcified and thickened aortic valve leaflets. There is severe aortic stenosis based on 2 D images, though gradient is not as impressive (mean gradient is 32 mm Hg with peak veloicty of 3.7 m/sec). Mitral valve leaflets are normal; Mild MAC with mild associated regurgitation. No prior echo at [facility] available for comparison. Procedure: A two-dimensional transthoracic echocardiogram with color flow and Doppler was performed in limited views only. There is no prior echocardiogram noted for this patient. Left Ventricle: The left ventricle is mildly dilated. Left ventricular wall thickness is mild-moderately increased. The LVOT velocity is 0.8 m/s. The LVOT diameter is 2.4 cm. Mitral Valve: The mitral valve leaflets appear mildly thickened, but open well. The mitral papillary muscle appears thickened and/or calcified. Aortic Valve: The aortic valve is moderately calcified. The calculated aortic valve area is 0.92 cm2. The peak aortic velocity is 3.7 m/sec. The aortic valve mean gradient is 32 mmHg. There is at least trace aortic regurgitation. MMode/2D Measurements & Calculations LVIDd: 5.8 cm LVOT diam: 2.4 cm LVIDs: 4.5 cm AoV Openin.36 cm FS: 22.9 % IVSd: 1.4 cm LVPWd: 1.2 cm Doppler Measurements & Calculations Ao V2 max: 365.2 cm/sec Ao V2 mean: 270.4 cm/sec LV V1 max P.4 mmHg Ao max P.4 mmHg Ao V2 VTI: 74.9 cm LV V1 VTI: 14.7 cm Ao mean P.6 mmHg MAT(V,D): 0.98 cm2 LVOT Max Elliott: 76.8 cm/sec MAT(I,D): 0.92 cm sev ratio: 0.20 Reading Physician:05:54 PM
== END 2017-01-06 11:00 | disposition short-term general hospital (02) ==
LOC: SED 07:58
DX: J81.1 Chronic pulmonary edema (principal); I35.0 Nonrheumatic aortic (valve) stenosis; E87.5 Hyperkalemia; E10.22 Type 1 diabetes mellitus with diabetic chronic kidney disease; N18.6 End stage renal disease; I10 Essential (primary) hypertension; K21.9 Gastro-esophageal reflux disease without esophagitis; K86.1 Other chronic pancreatitis; D64.9 Anemia, unspecified; Z94.4 Liver transplant status; Z99.2 Dependence on renal dialysis; Z88.2 Allergy status to sulfonamides; Z88.8 Allergy status to other drugs, medicaments and biological substances
CPT/HCPCS: 36415; 71010; 80053; 82375; 82803; 82948; 83605; 83735; 84484; 85025; 85610; 85730; 87040; 93005; 94660; 94799; 96374; 96375; 99291; 99292; C8929; J0610; J1815; J1940; J2270; J2405

== ENCOUNTER 2017-03-04 15:10 | Inpatient (IN) | payer MEDICARE, OTHER ==
[~2017-03-04] VITALS: Ht 193 cm; Wt 71.2 kg
[2017-03-04 15:13] VITALS: BP 192/103; PULSE 83; RESP 16; O2SAT 100
--- NOTE | 2017-03-04 15:30 | ED.REPORT ---
HPI-General Illness Date of Service Mar 04, 2017 ED Provider: Jomar Osei MD Pt is a 36 year old male with a complicated health history including HTN, DM I and renal failure presenting to the ED complaining of lower back pain radiating down the front of both legs onset today just after he finished dialysis at around 1130, rapidly worsening from a 2/10 now at a constant 7/10. Associated symptoms include a spiritism headache (gradual onset at 1330 today), groin pain ( gradually worsening since 3 days ago), and a cough. He states that the pain throbs with his heartbeat. He has a recent history of an aortic valve replacement in December 2016 and is on Coumadin. Denies any urinary or bowel incontinence, numbness or tingling, fever, new chest pain, abdominal pain, SOB, change in bowel habits, or any other symptoms at this time. Pt states that he has had a similar back spasm pain in the past after his kidney transplant. Nursing Notes Stated Complaint: BACK, LEG, HEAD PAIN Chief Complaint: General Complaint Nursing Notes Reviewed: Yes Allergies: Coded Allergies: cinacalcet (Verified Allergy, Severe, ANAPHYLAXIS, 03/04/17) Sulfa (Sulfonamide Antibiotics) (Verified Allergy, Unknown, UNKNOWN, ) Scheduled Amlodipine (Amlodipine) 5 Mg Tablet 5 MG PO DAILY Amphet Asp/Amphet/D-Amphet (Adderall) 20 Mg Tablet 20 MG PO BID Aripiprazole (Abilify) 10 Mg Tablet 10 MG PO DAILY Aspirin (Aspirin) 81 Mg Tablet 81 MG PO DAILY Atorvastatin Calcium (Atorvastatin Calcium) 10 Mg Tablet 5 MG PO HS Calcitriol (Calcitriol) 0.001 Gm Crystals 1 MCG PO QID Calcium Carbonate (Tums) 500 Mg Tab.chew 3,000 MG PO TID Carvedilol (Carvedilol) 25 Mg Tablet 25 MG PO BID Cholecalciferol (Vitamin D3) (Vitamin D3) 5,000 Unit Tab.rapdis 5,000 UNIT PO DAILY Citalopram (Citalopram) 40 Mg Tablet 40 MG PO DAILY Darbepoetin Osbaldo in [place] (Aranesp) 40 Mcg/0.4 Ml Syringe 40 MCG IJ MONDAYS Folic Acid/Vit Bcomp,C (Renal-Bhavna Tablet) 0.8 Mg Tablet 0.8 MG PO DAILY Gabapentin (Gabapentin) 300 Mg Capsule 300 MG PO HS Glycopyrrolate (Glycopyrrolate) 1 Mg Tablet 1 MG PO TID Insulin Aspart (NovoLOG U-100 Pen) 100 Unit/Ml Insuln.pen 1 SUBQ TIDAC Insulin Glargine (Lantus U100 Insulin Vial) 100 Unit/Ml Vial 4 UNIT SUBQ HS Levetiracetam (Keppra) 1,000 Mg Tablet 1,000 MG PO DAILY Levetiracetam (Keppra) 250 Mg Tablet 250 MG PO DAILY Lipase/Protease/Amylase (Zenpep DR) 15,000 Unit Capsule 1 EACH PO TIDWM Magnesium Oxide (Magnesium) 400 Mg Capsule 400 MG PO DAILY Pantoprazole DR (Pantoprazole DR) 40 Mg Tablet.dr 40 MG PO DAILY Tacrolimus (Tacrolimus) 1 Mg Capsule 4 MG PO HS Tacrolimus (Tacrolimus) 1 Mg Capsule 3 MG PO MORNING Warfarin Sodium (Warfarin Sodium) 2 Mg Tablet 2 MG PO HS Scheduled PRN Acetaminophen (Acetaminophen) 325 Mg Tablet 650 MG PO Q6H PRN PRN For Pain Clonidine (Clonidine) 0.1 Mg Tablet 0.1 MG PO BID PRN PRN HYPERtension Hydromorphone (Hydromorphone) 2 Mg Tablet 2 MG PO Q6H PRN PRN Pain Loperamide (Loperamide) 2 Mg Capsule 2 MG PO Q4 PRN PRN For Diarrhea or Loose Stool Metoclopramide (Reglan) 5 Mg Tablet 10 PO ACHS PRN PRN For Nausea Ondansetron (Zofran) 4 Mg Tablet 4 MG PO Q6 PRN PRN For Nausea Promethazine (Promethazine) 25 Mg Tablet 25 MG PO Q4 PRN PRN For Nausea/ Vomiting General Time Seen by MD: 15:28 Chief Complaint Back pain, Headache Hx Obtained From: Patient, Spouse Arrived By: Walk-in Sudden in Onset?: No Onset Occurred: 5 - 8 hours ago Symptom Duration: Since onset Location: : Back: HeadNo: Abdomen Quality: Painful Severity: Current: Pain level 3 out of 10 Severity: Maximum: Pain level 7 out of 10 Recent Healthcare: Recent doctor visit, Recent hospitalization Similar Sx Previous: Yes Past Medical History Past Medical History 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 Still produces a "good amount" of urine. Primary sclerosing cholangitis, status post liver transplant, on chronic immunosuppressants Type I diabetes mellitus. Remarkably, he says he manages this with diet alone at this time. Chronic anemia GERD Pancreatic insufficiency, chronic Hypertension Kidney stones Reports: Depression Past Surgical History Liver transplant 2013 at Ventral hernia Left arm shunt placement Aortic valve replacement for congenital bicuspid valve Family History Noncontributory Smoking History Smoker Current Status UNK Social History Drug Use: THC Other Social History: Poor social support, , Local resident Ambulatory Status Independent Review of Systems Full Review of Systems Constitutional: Denies: Fever Respiratory: Reports: Non-productive cough, Denies: Shortness of breath Cardiovascular: Denies: Chest pain GI: Denies: Abdominal pain Musculoskeletal: Reports: Back pain Neurologic: Reports: Headache, Denies: Bladder dysfunction, Bowel dysfunction, Numbness Complete sys rev & neg: except as marked. Physical Exam Nursing note and vitals reviewed. Constitutional: Well-developed, well-nourished. Not diaphoretic. Head: Normocephalic and atraumatic. No tenderness to palpation on temples. Mouth/Throat: Oropharynx is clear and moist. No oropharyngeal exudate. Eyes: EOM are normal. Pupils are equal, round, and reactive to light. Neck: Supple, no tracheal deviation. Cardiovascular: Normal rate,re gular rhythm. Equal and intact distal pulses throughout. Pulmonary/Chest: Effort normal and breath sounds normal. No respiratory distress. Abdominal: Soft. No distension. There is no tenderness, rebound, or guarding. Bowel sounds present. Musculoskeletal: Range of motion grossly intact, moving all extremities. No edema or tenderness appreciated. Neurological: AOx3. Grossly nonfocal exam. Strength and sensation intact and equal to bilateral upper and lower extremities. Normal finger to nose testing. Skin: Warm and dry, no rashes or pallor appreciated. Psychiatric: Appropriate mood and affect. Behavior appears normal. Male : No hernia. Testicles non tender. Vital Signs Vital Signs Date Time Temp Pulse Resp B/P Pulse Ox O2 Delivery O2 Flow Rate FiO2 03/04/17 20:43 87 17 187/100 99 Room Air 03/04/17 18:48 37.5 83 15 188/91 99 Room Air 03/04/17 16:25 37.3 79 201/96 Room Air 03/04/17 15:13 37.0 83 16 192/103 100 Room Air Initial VS: Reviewed Interpretation & Diagnostics Lab Results Interpretation Result Diagram: 03/04/17 1550 03/04/17 1550 Test 03/04/17 15:50 White Blood Count 7.1th/mm3 (3.8-10.1) Red Blood Count 3.40mil/mm3 (4.40-5.80) Hemoglobin 9.3g/dL (13.8-17.2) Hematocrit 28.6% (41.0-50.0) Mean Corpuscular Volume 84.1fL (81-100) Mean Corpuscular Hemoglobin 27.4pg (27.0-35.0) Mean Corpuscular Hemoglobin Concent 32.5% (32.0-37.0) Red Cell Distribution Width 15.1% (12.3-15.4) Platelet Count 129bil/L (150-400) Neutrophils (%) (Auto) 70.0% (40-74) Lymphocytes (%) (Auto) 12.6% (14-46) Monocytes (%) (Auto) 9.1% (4-12) Eosinophils (%) (Auto) 6.9% (0-5) Basophils (%) (Auto) 0.8% (0-3) Hold Purple Top Tube Received (Received) Prothrombin Time 25.8sec (8.1-12.5) Prothromb Time International Ratio 2.37ratio Hold Blue Top Tube Received (Received) Sodium Level 132mEq/L (134-144) Potassium Level 4.2mEq/L (3.5-5.2) Chloride Level 93mEq/L (97-108) Carbon Dioxide Level 23mmol/L (18-29) Blood Urea Nitrogen 23mg/dL (6-20) Creatinine 3.55mg/dL (0.76-1.27) Estimat Glomerular Filtration Rate 21mL/min (>59) Glucose Level 300mg/dL (60-99) Lactic Acid Level 1.4mmol/L (0.4-2.0) Calcium Level 10.2mg/dL (8.5-10.1) Magnesium Level 1.8mg/dL (1.6-2.6) Total Bilirubin 0.4mg/dL (0.0-1.2) Aspartate Amino Transf (AST/SGOT) 21U/L (0-50) Alanine Aminotransferase (ALT/SGPT) 25U/L (0-44) Alkaline Phosphatase 79U/L (25-150) Troponin T 0.478ug/L (0.0-0.011) Pro-B-Type Natriuretic Peptide 09634yd/mL (0-86) Total Protein 7.0g/dL (6.4-8.4) Albumin 3.8g/dL (3.4-5.0) Procalcitonin 0.33ng/mL (0.00-0.08) Hold Heath Top Tube Received (Received) Hold Lynn Top Tube Received (Received) ECG Interpretation ECG Interpretation: Flattened and inverted T waves in v4-v6. QT interval shorter. Less prominent ST changes in anterior leads. Time: 16:33 Interpreted by: ED physician X-Ray Chest Interpretation Chest Xray Interpretation: IMPRESSION: No acute cardiopulmonary disease. Dictated by: Wayne Loyd M.D. on 03/04/2017 at 16:49 View: Portable, 1 view Interpretation / Wet Read by: Interpret - Radiologist CT Head Interpretation IMPRESSION: No acute intracranial process Dictated by: Santiago Hutton M.D. on 03/04/2017 at 18:49 Study: Head CT no contrast Interpretation / Wet Read by: Interpret - Radiologist CT Chest Interpretation CT CHEST, ABDOMEN AND PELVIS: IMPRESSION: Normal appendix. Trace right pleural effusion and bibasilar dependent atelectasis. Slowly enlarging ovoid right paraspinal mass, however only indolent growth since 12/16/14. This raises the possibility of neurogenic tumor, among other benign and malignant possibilities.Recommend surgical consultation and management. This is probably not related to patient's symptoms, however please correlate clinically. Circumferential rectal wall thickening however this is grossly unchanged in appearance and recommend clinical correlation. No acute abnormality. Additional chronic and incidental findings as above. Dictated by: Santiago Hutton M.D. on 03/04/2017 at 18:50 Study type: Chest CT no contrast Interpretation / Wet Read by: Interpret - Radiologist Re-Eval/Medical Decision Med Decision/Clinical Course Troponin 0.478. BNP 88030. No Previous BNP noted however previous troponin was also elevated. Chest x ray negative. Discussed elevated troponin with patient. No chest pain, no shortness of breath. He does have ESRD and so a noncontrast CT was performed. CT CHEST shows Trace right pleural effusion. Slowly enlarging ovoid right paraspinal mass, however only indolent growth since 12/16/14. This raises the possibility of neurogenic tumor, among other benign and malignant possibilities. No acute abnormality. Discussed this with patient, including need for followup. On reassessment, still having severe pain. Given his NSTEMI and persistent pain, plan admission for further evaluation and mgmt. Time of Eval: 20:10 Patient Status: Condition improved Re-Evaluation/Progress Note: Discussed CT results and the pt's valve replacement surgery. Time of Eval: 21:29 Patient Status: Condition improved Re-Evaluation/Progress Note: Discussed plan for admission. Pt understands and agrees. Consultation #1: Referral / Consult Name: GINGER RUEDA MD Call Returned at: 20:37 Note: Cardiothoracic surgery at . Pt can be discharged. There is nothing to worry about with his troponin. Follow up with Dr. Hirsch in his clinic in the next 2 weeks. 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 I, Dr. Osei personally performed the history, physical exam and medical decision-making; I reviewed and confirmed the accuracy of the information in the transcribed note. Signed by: Joelle Schultz, 03/04/2017 at [id number]. copies to: Praveen Mccann MD, William B MD Mar 04, 2017 15:30 CHANTELLE LOZOYA Mar 04, 2017 16:01
[2017-03-04 16:25] VITALS: BP 201/96; PULSE 79
[2017-03-04 16:30] LABS: BASOPHILS % (AUTO) 0.8 % (0-3); EOSINOPHILS % (AUTO) 6.9 % (0-5); MONOCYTES % (AUTO) 9.1 % (4-12); Mean Corpuscular Hemoglobin 27.4 pg (27.0-35.0); Mean Corpuscular Volume 84.1 fL (81-100); Platelet Count 129 bil/L (150-400)
[2017-03-04 16:38] LABS: INR 2.37 ratio
--- NOTE | 2017-03-04 16:52 | DRSVH ---
PROCEDURE: X-RAY CHEST ONE VIEW, PORTABLE ([id number]) INDICATIONS: 36 year-old male with malaise, and aortic valve replacement in December 2016. TECHNIQUE: One view of the chest was acquired. COMPARISON: [facility], CR, XR CHEST 1VW (PORTABLE), 01/06/2017, 8:20. [facility], CR, CHEST 2VW, 08/18/2012, 18:18. FINDINGS: Surgical changes and devices: Patient is status post median sternotomy and aortic valve replacement. Lungs and pleura: No pleural effusions or pneumothorax. Lungs are clear. Mediastinum: Mediastinal contours appear normal. Heart size is normal. Bones and chest wall: No suspicious bony lesions. Overlying soft tissues appear unremarkable. IMPRESSION: No acute cardiopulmonary disease. Dictated by: Wayne Loyd M.D. on 03/04/2017 at 16:49 Approved by: Wayne Loyd M.D. on 03/04/2017 at 16:50
[2017-03-04 17:03] LABS: Magnesium 1.8 mg/dL (1.6-2.6)
[2017-03-04 17:15] LABS: TROPONIN T 0.478 ug/L (0.0-0.011)
[2017-03-04 18:48] VITALS: BP 188/91; PULSE 83; RESP 15; O2SAT 99
--- NOTE | 2017-03-04 18:52 | DRSVH ---
PROCEDURE: CT BRAIN WITHOUT CONTRAST ([id number]) INDICATIONS: recent aortic valve repl w/ back pain, groin pain TECHNIQUE: Noncontrast 4.5 mm thick angled axial sections acquired from the foramen magnum to the vertex, with c oronal reformats. COMPARISON: [facility], CT, BRAIN W/O CONTRAST, 06/13/2013, 14:38. FINDINGS: Image quality: Excellent. CSF spaces: Basal cisterns are patent. No extra-axial fluid collections. Ventricles are normal in size and shape. Brain: No midline shift. No intracranial masses or hemorrhage. Barrera-white matter interface is norm al. Skull and face: Calvarium and visualized facial bones are intact, without suspicious lesions. Sinuses: Visualized sinuses and mastoids are clear. IMPRESSION: No acute intracranial process Dictated by: Santiago Hutton M.D. on 03/04/2017 at 18:49 Approved by: Santiago Hutton M.D. on 03/04/2017 at 18:50
--- NOTE | 2017-03-04 19:06 | DRSVH ---
PROCEDURE: CT CHEST, ABDOMEN AND PELVIS WITHOUT CONTRAST ([id number]) INDICATIONS: recent aortic valve repl w/ back pain, groin pain TECHNIQUE: After the administration of oral contrast, 5 mm thick sections acquired from the lung apices to the s ymphysis pubis. 5 mm thick coronal and sagittal reformats acquired, with additional 7 mm coronal MIP reformats through the lungs. For radiation dose reduction, the following was used: automated expos ure control, adjustment of mA and/or kV according to patient size. COMPARISON: [facility], CT, ABD/PELVIS W/CON ([facility]), 12/16/2014, 13:12. [facility] pital, CT, KUB - CT ([facility]), 03/06/2013, 14:23. [facility], CT, CT KUB, 12/04/2016, 16:20. FINDINGS: Image quality: Excellent. CHEST: Lungs and pleura: Bibasilar dependent atelectasis. Trace right pleural effusion. No pneumothorax. Cam tral airways appear grossly patent. Mediastinum: Heart size is normal. No pericardial effusion. No mediastinal adenopathy by CT size c riteria. Thoracic aorta and central pulmonary arteries are normal in size. Esophagus is normal in c aliber, although there is residual oral contrast material within the esophagus raising possibility of reflux or dysmotility. No hiatal hernia. Chest wall: No axillary or supraclavicular adenopathy by size criteria. Thyroid gland negative. ABDOMEN: Solid organs: Liver and spleen are normal in size. Main portal vein appears enlarged as before. Gal lbladder not seen and may be surgically absent versus decompressed. Pancreas is normal in contours. No adrenal nodules. Both kidneys are normal in size, without hydronephrosis. Bilateral punctate glen al calcifications which may be vascular or dystrophic, versus less than 5 mm nephrolithiasis. Peritoneum and bowel: Small and large bowel loops are normal in caliber and wall thickness. No free fluid or air. Appendix appears normal. No evidence of acute diverticulitis. There is circumferentia l rectal wall thickening although the appearance is grossly unchanged Nodes and vessels: No retroperitoneal or mesenteric adenopathy by size criteria. Aorta and inferior vena cava are normal in size. There is an ovoid right paraspinal mass with soft tissue attenuation measuring 3.0 x 2.8 cm, increased in size since prior study dated 4/16/15 Miscellaneous: No ventral hernias. PELVIS: Genitourinary: Bladder wall thickness is normal. Miscellaneous: No inguinal hernias or adenopathy. Bones: No suspicious bony lesions. No vertebral body compression fractures. IMPRESSION: Normal appendix. Trace right pleural effusion and bibasilar dependent atelectasis. Slowly enlarging ovoid right paraspinal mass, however only indolent growth since 12/16/14. This raises the possibility of neurogenic tumor, among other benign and malignant possibilities.Recommend surgic al consultation and management. This is probably not related to patient's symptoms, however please co rrelate clinically. Circumferential rectal wall thickening however this is grossly unchanged in appearance and recommend clinical correlation. No acute abnormality. Additional chronic and incidental findings as above. Dictated by: Santiago Hutton M.D. on 03/04/2017 at 18:50 Approved by: Santiago Hutton M.D. on 03/04/2017 at 19:05
[2017-03-04] MEDS ORDERED: HYDROmorphone 1 mg/mL Inj IVPUSH ONE (20:20)
[2017-03-04 20:43] VITALS: BP 187/100; PULSE 87; RESP 17; O2SAT 99
[2017-03-04] MEDS ORDERED: KEPP250T PO (22:58)
[2017-03-04] MEDS ORDERED: AMLO5TAB2 PO (22:58)
[2017-03-04] MEDS ORDERED: GLYC1TAB11 PO (22:58)
[2017-03-04] MEDS ORDERED: DARB40DI IJ (22:58)
[2017-03-04] MEDS ORDERED: CLON0.1T PO (22:58)
[2017-03-04] MEDS ORDERED: ARIP10TA14 PO (22:58)
[2017-03-04] MEDS ORDERED: CARV25TA2 PO (22:58)
[2017-03-04] MEDS ORDERED: ASPI-973 PO (22:58)
[2017-03-04] MEDS ORDERED: INSU100I (22:58)
[2017-03-04] MEDS ORDERED: POLY17PO2 PO (22:58)
[2017-03-04] MEDS ORDERED: CITA40TA13 PO (22:58)
[2017-03-04] MEDS ORDERED: CHOL500062 PO (22:58)
[2017-03-04] MEDS ORDERED: CALC0.002 PO (22:58)
[2017-03-04] MEDS ORDERED: DOCU250C2 PO (22:58)
[2017-03-04] MEDS ORDERED: LEVE100014 PO (22:58)
[2017-03-04] MEDS ORDERED: CALC500T9 PO (22:58)
[2017-03-04] MEDS ORDERED: PANT40TA3 PO (22:58)
[2017-03-04] MEDS ORDERED: DOCU240C41 PO (22:58)
[2017-03-04] MEDS ORDERED: SENN-133 PO (22:58)
[2017-03-04] MEDS ORDERED: MAGN400C PO (22:58)
[2017-03-04] MEDS ORDERED: HYDR2TAB28 PO (22:58)
[2017-03-04] MEDS ORDERED: TACR1CAP8 PO ×2 (22:58)
[2017-03-04] MEDS ORDERED: LIPA1CAP27 PO (22:58)
[2017-03-04] MEDS ORDERED: ACET325T51 PO (22:58)
[2017-03-04] MEDS ORDERED: [UNRECOGNIZED DRUG - CODE] PO (22:58)
[2017-03-04] MEDS ORDERED: INSU100V7 SUBQ (22:58)
[2017-03-04] MEDS ORDERED: GABA-502 PO (22:58)
[2017-03-04] MEDS ORDERED: WARF2TAB7 PO (22:58)
[2017-03-04] MEDS ORDERED: AMPH20TA5 PO (22:58)
[2017-03-04] MEDS ORDERED: ATOR10TA66 PO (22:58)
[2017-03-04] MEDS ORDERED: INSU100I SUBQ (23:00)
[2017-03-04] MEDS ORDERED: Ondansetron 2 mg/mL 2 mL Inj ONE (23:12)
[2017-03-04 23:15] VITALS: BP 148/91; PULSE 84; RESP 17; O2SAT 99
[2017-03-04] MEDS ORDERED: Ondansetron 2 mg/mL 2 mL Inj IVPUSH PRN (23:15)
[2017-03-04] MEDS ORDERED: Alum-Mag Hydrox-Simeth 30 mL Suspension PO PRN (23:40)
[2017-03-04] MEDS ORDERED: HYDROcodone-APAP 5-325 mg Tablet PO PRN (23:40)
[2017-03-04] MEDS ORDERED: Polyethylene Glycol (PEG) 17 Gm Powder PO PRN (23:40)
[2017-03-05] VITALS (10 sets, daily range): BP systolic 155–198; BP diastolic 83–109; PULSE 71–78; RESP 16–20; O2SAT 97–99
[2017-03-05] MEDS ORDERED: Heparin 5,000 Unit/mL Inj SUBQ SCH (00:30)
[2017-03-05] MEDS: Ondansetron 2 mg/mL 2 mL Inj IVPUSH PRN ×2 (00:42→12:04)
[2017-03-05 01:42] LABS: APPEARANCE,URINE CLEAR (CLEAR,HAZY); COLOR,URINE STRAW (YELLOW); OCCULT BLOOD,URINE TRACE (NEGATIVE); PH,URINE 6.5 (5.0-8.0); UROBILINOGEN,URINE NORMAL (NORMAL)
--- NOTE | 2017-03-05 02:29 | PCM.HPMED ---
Subjective Date of Service Mar 05, 2017 Primary Provider: Admitting Physician: Kitty Wolf DO Primary Care Physician: Praveen Mccann MD Attending Physician: Kitty Wolf DO Admit Status: From the Emergency Department Chief Complaint: Back/groin/leg pain History of Present Illness: Pt is a 36 year old male with a complicated health history including HTN, DM I ( uncontrolled), ESRD on dialysis, primary sclerosing cholangitis s/p liver transplant on immunosuppressants, cerebellar CVA and aortic valve replacement on Coumadin who presents with right groin pain radiating up to his lower back and down to bilateral anterior thighs. He reports the pain began today just after he finished dialysis at around 11:30 AM, rapidly worsening from a 2/10 throbbing pain to a constant 7/10. He states it is now 5/10. He states he noticed right leg weakness on flexing his hip over the last 3 days. He also reports a temporal headache and cough. He has a recent history of an aortic valve replacement in December 2016 and is on Coumadin. Denies any urinary or bowel incontinence, numbness or tingling, fever, chills, new chest pain, abdominal pain, SOB, change in bowel habits, or any other symptoms at this time. Pt states that he has had a similar back spasm pain in the past after his kidney transplant. On admission, temp 36.4, HR 78, RR 20, BP 173/102. WBC 7.1. Hb 9.3, Hct 28.6, plt 129. Na 132, BUN 23, Cr 3.55, glucose 300. Lactic acid 1.4. Trop 0.478, proBNP 5[address]19. UA negative. CT chest/abd/pelvis without contrast showed trace right pleural effusion and bibasilar dependent atelectasis as well as a slowly enlarging ovoid right paraspinal mass, with only indolent growth since 12/16/14. CXR and head CT were negative. Review of Systems: Comprehensive review of systems conducted and was negative except for the pertinent positives listed above. Allergies Coded Allergies: cinacalcet (Verified Allergy, Severe, ANAPHYLAXIS, 03/04/17) Sulfa (Sulfonamide Antibiotics) (Verified Allergy, Unknown, UNKNOWN, ) Home Medications APAP 650 mg q6 PRN Amlodipine 5 mg daily Adderall 20 mg BID Abilify 10 mg daily Aspirin 81 m daily Atorvastatin 5 mg qhs Carvedilol 25 mg BID Citalopram 40 mg daily Clonidine 0.1 mg BID PRN Aranesp 40 mcg Mondays Gabapentin 300 mg qhs Glycopyrrolate 1 mg TID Dilaudid 2 mg q6h PRN Keppra 1000 mg daily, 250 mg after dialysis Loperamide 2 mg q4 PRN Reglan 10 mg PRN Zofran 4 mg q6 PRN Protonix 40 mg daily Promethazine 25 mg q4 PRN Tacrolimus 3 mg AM, 4 mg qhs Warfarin 2 mg qhs PMH Hx of aortic valve replacement in December 2016 on Coumadin Cerebellum CVA End-stage renal disease on hemodialysis-MWF. Still produces a "good amount" of urine. Primary sclerosing cholangitis, status post liver transplant, on chronic immunosuppressants Type I diabetes mellitus. Remarkably, he says he manages this with diet alone at this time. Chronic anemia GERD Pancreatic insufficiency, chronic Hypertension Kidney stones Depression Surgical History Liver transplant 2012 at Ventral hernia Left arm shunt placement Aortic valve replacement for congenital bicuspid valve Family History Mother: Afib Father: Hypertension Social History Hx Alcohol Use: No Hx Substance Use: No Hx Tobacco Use: Yes Smoking Status: Never Smoker Exam Vital Signs Vital Sign - Last Date Time Temp Pulse Resp B/P Pulse Ox O2 Delivery O2 Flow Rate FiO2 03/05/17 00:28 77 03/05/17 00:19 36.5 20 173/102 98 Room Air Exam General: Alert, Oriented X3, Cooperative, No acute distress. Speaks in whisper (reports nerve damage during cardiac surgery) Head: Normocephalic, atraumatic. External ears normal. Eyes: PERRLA, EOMI. Anicteric sclerae. Mouth: Mouth normal, Mucous membranes moist/pink Neck: Neck supple with full range of motion. Chest& Lungs: Clear to auscultation bilaterally with no crackles, wheezes, or rhonchi. Cardiovascular: Regular rate/rhythm, Normal S1, Normal S2, Systolic murmur present Abdomen: Mild RLQ tenderness to palpation, Non-distended, No masses, Normoactive bowel tones, Soft Musculoskeletal: Normal range of motion Extremities: No cyanosis/clubbing/edema bilaterally Neurological: Grossly neurologically intact. Normal speech Lab and Diagnostics Result Diagram: 03/04/17 1550 03/04/17 1550 Assessment & Plan Pt is a 36 year old male with a complicated health history including HTN, DM I ( uncontrolled), ESRD on dialysis, primary sclerosing cholangitis s/p liver transplant on immunosuppressants, cerebellar CVA and aortic valve replacement on Coumadin who presents with right groin pain radiating up to his lower back and down to bilateral anterior thighs. Paraspinal mass. - Patient's description of his pain (right groin pain radiating to lower back and to thigh) is descriptive of psoas pain. CT chest/abd/pelvis shows right paraspinal mass adjacent to the right psoas muscle, consistent with his symptoms. CT with contrast could not be done due to renal failure. While psoas abscess is somewhat of a concern given his immunosuppressed state, this is less likely, as WBC is normal, pt has no fever, and the mass has been present since 2014. Procalcitonin was 0.33, but this is in the context of ESRD. The mass does appear to be slowly enlarging. - Surgery consult in AM - Morphine 1-2 mg q4h IV PRN pain Type I Diabetes mellitus, uncontrolled. - Pt states he controls his Type 1 diabetes with diet. Glucose 300. - A1c ordered - Lantus 7 U qhs - half dose as pt has nausea/vomiting - Humalog medium dose correctional scale - Start nutritional insulin when pt is taking PO regularly - Continue gabapentin Chronic anemia. Present on admission. - Likely secondary to ESRD. Pt is on Aranesp. - Monitor H&H for acute changes. Transfuse for Hb <7. - Continue home Aranesp Elevated troponin, chronic. - Troponin 0.478 on admission, in context of ESRD. - Trend troponin x3 End-stage renal disease - On hemodialysis-MWF. States he still produces a "good amount" of urine. - Nephrology consult for dialysis if pt staying until Saturday. Hypertension, acute on chronic. - BP 173/102 on admission. Possibly elevated secondary to pain. Consider adding labetalol or hydralazine if BP does not improve with pain control and restarting home meds. - Continue home amlodipine, carvedilol - Monitor BP closely. - Pain control ADHD - Hold home Adderall as pt is hypertensive Depression - Continue Abilify, citalopram Hx of cerebellar CVA - Continue aspirin and atorvastatin Hx of seizures - Continue home Keppra Hx of aortic valve replacement - Continue warfarin Hx of liver transplant - Continue tacrolimus GERD - Continue Protonix - Bowel regimen as needed - Antiemetic as needed Patient is admitted under observation status with expected length of stay less than 2 midnights due to severity of presenting symptoms, risk of adverse event, and complexity of treatment plan. Pain Evaluation: Adequate Pain Control GI Prophylaxis: Not indicated VTE Prophylaxis: Sub-Q Heparin (Unfractionated) Resuscitation Status: CPR: Attempt Resuscitation Attending Statement The patient was seen and examined together with house staff on 03/04/2017 and I agree with the history, exam and plan as outlined in the note above. Gama Palomo Mar 05, 2017 02:29 Kitty Wolf DO Mar 05, 2017 04:55
[2017-03-05] MEDS: Insulin GLARgine 100 Unit/mL Syringe SUBQ SCH ×2 (02:35→21:00)
[2017-03-05] MEDS ORDERED: Dextrose 10% 250 ML IV PRN (02:56)
--- NOTE | 2017-03-05 02:59 | NUR ---
Admit/Pain/Nausea Admitted pt from ED. Reports of nausea and had an episode of nausea. Zofran 8mg administered and relieved the vomiting. Reports of mild back/flank pain. Administered morphine PRN for relief of symptoms. Has been cooperative with care. Will continue to monitor.
[2017-03-05] MEDS ORDERED: Glucose 40% Oral Gel 15 Gm Tube PO PRN (03:00)
--- NOTE | 2017-03-05 03:59 | NUR ---
Release of information Verbal consent approved by pt to release information to spouse.
[2017-03-05 06:21] LABS: BASOPHILS % (AUTO) 0.6 % (0-3); EOSINOPHILS % (AUTO) 9.8 % (0-5); MONOCYTES % (AUTO) 9.5 % (4-12); Mean Corpuscular Hemoglobin 27.2 pg (27.0-35.0); Mean Corpuscular Volume 85.4 fL (81-100); NEUTROPHILS % (AUTO) 57.5 % (40-74); Platelet Count 143 bil/L (150-400)
[2017-03-05] MEDS: Insulin LISPRO 300 Unit/3 mL Inj SUBQ SCH ×4 (08:00→22:00)
--- NOTE | 2017-03-05 09:10 | NUR ---
Social Work-initial assessment: Data:See initial assessment. Pt is a 36 y/o male who was admitted on 03/04/17 for N Stemi per H&P. Pt's insurance is [employer] and PCP is Praveen Mccann MD. EMR reviewed. Pt's readmission score is 4-high risk. SW met with pt at bedside, SW role explained. Pt is alert and oriented x3. Pt resides at home with his where he remains independent with basic ADLS. Pt uses a cane or walker occasionally and does drive. Pt has no HH or SNF history. Pt has no continuous churn butterm[employer] care insurance or VA benefits. SW discussed DPOA/ advanced directive, pt confirms he has completed this. Pt goes to dialysis on Saturday/Sat/ Saturday. SW provided pt with discharge planning checklist information and informed pt to call SW with any questions. SW provided phone number and plan on white board in room. Pt's to provide transport home at discharge. No anticipated discharge needs. SW will continue to follow if needs arise. Assessment:Pt who is independent at baseline. Plan:Pt to discharge home when medically stable via POV. No anticipated discharge needs. SW will continue to follow if needs arise. LUPIS Garica Addendum: 03/05/17 at 0915 by SIMI BAI Amended: Links added.
[2017-03-05] MEDS: levETIRAcetam 500 mg Tablet PO SCH (09:14)
[2017-03-05] MEDS: Pantoprazole 40 mg ER24 Tablet PO SCH (09:14)
[2017-03-05] MEDS: Pancrelipase 5,000 Unit Capsule PO SCH ×3 (09:15→18:40)
[2017-03-05] MEDS: ARIPiprazole 10 mg Tablet PO SCH (09:15)
[2017-03-05 09:36] LABS: INR 2.87 ratio
--- NOTE | 2017-03-05 09:59 | NUR ---
Case Management: HOMA delivered and explained to spouse via telephone and pt. at bedside. Signed original placed in chart. Copy left at bedside. Hermelinda Barbosa RN
--- NOTE | 2017-03-05 16:51 | PCM.PHAPRO ---
Progress Back/groin/leg pain Date -Mar 05-Mar INR 2.37 2.37 INR change Warf Dose UNK 2 Octaviano Edmond Pharm.D Mar 05, 2017 16:51
--- NOTE | 2017-03-05 16:54 | PCM.PNMED ---
Subjective Date of Service Mar 05, 2017 Subjective Says overall feels better today. Denies any new issues/complaints Exam Vital Signs Vital Sign - Last Date Time Temp Pulse Resp B/P Pulse Ox O2 Delivery O2 Flow Rate FiO2 03/05/17 12:20 36.5 75 18 160/88 99 Room Air Intake and Output 03/04/17 03/04/17 03/05/17 Cumulative From/Thru 15:00 23:00 07:00 03/04/17 15:13 - 03/05/17 05:58 Intake Total 0 ml 0 ml Output Total 400 ml 400 ml Balance -400 ml -400 ml Intake Oral 0 ml 0 ml Output Urine Total 400 ml 400 ml General: Alert, Oriented X3, Cooperative, No Acute Distress Head: Normal Eyes: PERRLA, EOMI, Scleral Anicteric Nose: Mucous Membr Moist/[place] Mouth: Mucous Membr Moist/[place] Neck: Supple Chest & Lungs: Chest Wall Normal, Clear to auscultation & percussion Cardiovascular: Regular Rate/Rhythm Abdomen: Non-tender, Non-distended, Normoactive bowel tones, Soft Extremities: No cyanosis/clubbing/edma bilat Neurological: Grossly Neurologically Intact, Normal Speech Additional Information: Psych: Calm, Appropriate IVs and Medications Medications Reviewed: Medications were reviewed in detail Lab and Diagnostics Result Diagram: 03/05/17 0545 03/05/17 0545 X-Rays, CTs and MRIs Date of Service: 03/04/17 1618 PROCEDURE: X-RAY CHEST ONE VIEW, PORTABLE ([id number]) IMPRESSION: No acute cardiopulmonary disease. Dictated by: Wayne Loyd M.D. on 03/04/2017 at 16:49 Approved by: Wayne Loyd M.D. on 03/04/2017 at 16:50 Date of Service: 03/04/17 1728 PROCEDURE: CT CHEST, ABDOMEN AND PELVIS WITHOUT CONTRAST ([id number]) IMPRESSION: Normal appendix. Trace right pleural effusion and bibasilar dependent atelectasis. Slowly enlarging ovoid right paraspinal mass, however only indolent growth since 12/16/14. This raises the possibility of neurogenic tumor, among other benign and malignant possibilities.Recommend surgical consultation and management. This is probably not related to patient's symptoms, however please correlate clinically. Circumferential rectal wall thickening however this is grossly unchanged in appearance and recommend clinical correlation. No acute abnormality. Additional chronic and incidental findings as above. Dictated by: Santiago Hutton M.D. on 03/04/2017 at 18:50 Approved by: Santiago Hutton M.D. on 03/04/2017 at 19:05 Date of Service: 03/04/17 1728 PROCEDURE: CT BRAIN WITHOUT CONTRAST ([id number]) IMPRESSION: No acute intracranial process Dictated by: Santiago Hutton M.D. on 03/04/2017 at 18:49 Approved by: Santiago Hutton M.D. 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 # Acute back and groin pain, present on admission. - CT chest/abd/pelvis shows right paraspinal mass adjacent to the right psoas muscle, consistent with his symptoms. - While psoas abscess is somewhat of a concern given his immunosuppressed state , this is less likely, as WBC is normal, pt has no fever, and the mass has been present since 2014. - Surgery consulted today. Will followup with recs - Continue with supportive care including Morphine 1-2 mg q4h IV PRN pain # Type I Diabetes mellitus. Currently well controlled - HgA1C pending - Continue with Lantus 7 U qhs (half dose as pt had nausea/vomiting) - Humalog medium dose correctional scale - Start nutritional insulin when pt is taking PO regularly - Continue gabapentin # Chronic anemia. Present on admission. - Likely secondary to ESRD. Pt is on Aranesp. - Monitor H&H for acute changes. Transfuse for Hb <7. - Continue home Aranesp # Elevated troponin, chronic. - No chest pain - Was seen by cardiology in December 2016 and underwent aortic valve replacement at [facility] at that time - No further workup for now unless becomes symptomatic # End-stage renal disease, on hemodialysis-MWF. - Discussed with Nephrology today and will try to see him tomorrow for his dialysis # Hypertension, acute on chronic. - BP 173/102 on admission. - Possibly elevated secondary to pain. - Continue home amlodipine, carvedilol - Monitor BP closely. - Pain control # ADHD - Hold home Adderall as pt is hypertensive # Depression - Continue Abilify, citalopram # Hx of cerebellar CVA - Continue aspirin and atorvastatin # Hx of seizures - Continue home Keppra # Hx of aortic valve replacement - Continue warfarin - Follow daily INR # Hx of liver transplant - Continue tacrolimus # GERD - Continue Protonix Dispo: 1-2 days pending above workup GI Prophylaxis: Not indicated VTE Prophylaxis: Sub-Q Heparin (Unfractionated) VTE Mechanical Devices: Intermittant Pneumatic CD Resuscitation Status: CPR: Attempt Resuscitation Cecilio Pérez Mar 05, 2017 16:54 Cecilio Pérez Mar 05, 2017 16:54
[2017-03-05] MEDS ORDERED: MetoCLOpramide 5 mg/mL 2 mL Inj IVPUSH PRN (17:05)
[2017-03-05] MEDS: MetoCLOpramide 5 mg/mL 2 mL Inj IVPUSH PRN (17:29)
--- NOTE | 2017-03-05 17:39 | CONS ---
[address] [address] CONSULTATION REPORT PATIENT: DARON MORA : 1980 MR#: [id number] ADMIT: 03/04/2017 JOB ID: [id number] DATE OF SERVICE: 03/05/2017 REQUESTING PHYSICIAN: Cecilio Pérze MD REASON FOR CONSULTATION: Management of end-stage renal disease. CHIEF COMPLAINT: Right lower back pain. PRESENT ILLNESS: This is a 36-year-old, male with significant past medical history of primary sclerosing cholangitis status post liver transplant, type 1 diabetes, end-stage renal disease on hemodialysis every Saturday, Saturday, and Saturday, history of aortic valve replacement and CVA who presented to the hospital with a complaint of right lower back pain. The pain started on the same day of the admission. It was radiating down to right groin and right leg. The pain is constant. The patient has been on pain medication. Current pain scale is 3/10. The patient came in to the hospital for further investigation. CAT scan of the chest, abdomen and pelvis without contrast showed slowly enlarging oval right paraspinal mass. Mass was found since December 2014, suggesting of neurogenic tumor and other malignant process. The patient is currently on supportive treatment. Renal was consulted to resume dialysis while he is in the hospital. His last dialysis was on Saturday. He is a patient of Dr. James Osorio. He goes to [facility] for hemodialysis. He typically runs 4 hours with ultrafiltration 2-3 L. During my visit, the patient is quite comfortable. He has mild pain. He reports no fever, no chills, no chest pain, no shortness of breath. No nausea, vomiting. No diarrhea. No dysuria, no hematuria. The patient produces 1-2 cups of urine a day. PAST MEDICAL HISTORY: 1. End-stage renal disease, on hemodialysis every Saturday, Saturday, and Saturday. 2. Primary sclerosing cholangitis status post liver transplant in 2012 at [facility]. 3. Cerebellum CVA. 4. Status post aortic valve replacement in December 2016 on Coumadin. 5. Diabetes. 6. Anemia of chronic kidney disease. 7. Chronic pancreatic insufficiency. 8. Hypertension with hypertensive nephrosclerosis. 9. Kidney stones. 10. Depression. 11. Immunocompromised host. 12. Hyperparathyroid disease status post parathyroidectomy. 13. Ventral hernia repair. 14. History of Regi esophagitis. PAST SURGICAL HISTORY: 1. Severe aortic stenosis with underlying disease of bicuspid aortic valve status post aortic valve replacement in December 2016. 2. Primary sclerosing cholangitis status post liver transplant in 2012. 3. Hepatorenal syndrome starting hemodialysis in September 2012 status post left AV fistula creation. 4. Status post parathyroidectomy in December 2016. 5. Status post ventral hernia repair. 6. History of postoperative anastomotic bowel obstruction requiring Iman-en-Y gastric bypass. SOCIAL HISTORY: Denies current use of alcohol, tobacco, illicit drugs. FAMILY HISTORY: Positive type 1 diabetes in grandfather and his mother. Crohn disease in uncle. Ovarian cancer in mother. REVIEW OF SYSTEMS: Fourteen point review of system was performed. HOME MEDICATIONS: 1. Amlodipine 5 mg daily. 2. Abilify 10 mg daily. 3. Aspirin 81 mg daily. 4. Atorvastatin 5 mg daily. 5. Calcitriol 1 mcg q.i.d. 6. Calcium carbonate 3 g t.i.d. 7. Carvedilol 25 mg b.i.d. 8. Vitamin D3 5000 units daily. 9. Citalopram 40 mg daily. 10. Clonidine 0.1 mg as needed. 11. Aranesp. 12. Folic acid. 13. Vitamin B complex. 14. Vitamin C. 15. Gabapentin. 16. Hydromorphone. 17. Insulin NovoLog, Lantus. 18. Keppra. 19. Omeprazole. 20. Tacrolimus 3 mg in the morning, 4 mg in the afternoon. 21. Warfarin 2 mg at bedtime. PHYSICAL EXAMINATION: Vitals: Temperature 36.5, pulse 75, respiratory rate 18, blood pressure 160/88, O2 sat 99% on room air. General appearance: Awake, alert, oriented x3. No acute distress. HEENT: Mild pallor. No jaundice. No JVD. No lymphadenopathy. No thyroid enlargement. Heart: Regular rhythm. Normal S1, S2. Systolic murmur noted. Abdomen: Soft, nontender, nondistended. No hepatosplenomegaly. Extremities: No edema, cyanosis or clubbing of fingers. LABORATORY: Hemoglobin 9.5, WBC 6.3, sodium 134, potassium 5.1, chloride 97, bicarb 21, BUN 35, creatinine 4.84, glucose 126, total protein 6.2. ASSESSMENT: 1. End-stage renal disease, on hemodialysis every Saturday, Saturday, and Saturday. 2. Paraspinal mass. 3. Primary sclerosing cholangitis status post liver transplant in 2012. 4. Severe aortic stenosis with bicuspid aortic valve status post aortic valve replacement on chronic anticoagulant. 5. Immunocompromised host. 6. Hypertension with hypertensive nephrosclerosis. 7. Anemia of chronic kidney disease. 8. We will arrange dialysis tomorrow, run for 4 hours with ultrafiltration 2-3 L. I will recommend to increase Norvasc to 10 mg once a day and add losartan to 50 mg once a day. 9. Hyperparathyroidism status post parathyroidectomy, currently on vitamin D. The patient is not on any calcium supplement at the moment. His current calcium is 9.2.
--- NOTE | 2017-03-05 18:24 | NUR ---
Nausea/Vomiting Pt reports having gastroparesis. Upon initial visit in room, found basin with about 50ml of emesis in it. Pt reported nausea off and on during shift, declined medication and reports this is his normal. Found pt vomiting once during shift about 300mL, mostly undigested food. Administered IV Zofran and pt found relief. Pt requested to use Marinol, as had good success while in [place]. paged, called back and instructed to try Reglan first. Administered IV Reglan. Pt reported improved Nausea. Continuing to monitor.
--- NOTE | 2017-03-05 19:39 | PCM.CONSUR ---
Subjective Date of Service: Mar 05, 2017 History of Present Illness Mr. Maldonado is a pleasant 36-year-old gentleman with multiple medical comorbidities and an extensive surgical history who we were asked to consult regarding back pain in the setting of an enlarging paraspinous mass. The patient states that yesterday morning he awoke from sleep in the middle of his dialysis run with severe lower back pain. The patient states the pain started in the middle of his low back, radiated around his flanks, and down his bilateral anterior thighs to the level of his knees. He describes the pain as a severe, dull ache. This pain has been persistent since onset, but has improved with pain medications in the hospital. The patient notes he has never experienced similar pain in the past. He denies any associated numbness, weakness, or tingling of his lower extremities or perineum. With further questioning he relates that 2 days ago he began to experience pain in his right groin with active extension or flexion of his thigh at the level of the hip. He notes this is particularly painful when shifting his right leg from gas pedal to break and vice versa. The patient denies any other new or worrisome symptoms. He is experiencing baseline level of nausea which she attributes to chronic gastroparesis. He has not had a bowel movement since yesterday but is passing flatus. He continues to void approximately one cup of urine per day which is his baseline. He has not had any fevers or chills, other aches or pains, or other worrisome neurologic changes. Upon his presentation to the hospital the patient was found to have a white blood cell count of 7.1, hematocrit of 28.6, platelets of 129, and an unremarkable BMP with the exception of BUN and 35 and creatinine 4.84. Additionally he was noted to have an elevated troponin of 0.54. CBC is unchanged today. CT of the brain revealed no acute intracranial process. CT of the abdomen and pelvis, however, revealed no acute abnormality other than a an enlarging ovoid right paraspinal mass. This mass was previously seen on CT in 2014 and his grown very slightly in size. The general surgery service was therefore consulted to investigate if this could be the source of the patient's pain. Allergy Allergies: Coded Allergies: cinacalcet (Verified Allergy, Severe, ANAPHYLAXIS, 03/04/17) Sulfa (Sulfonamide Antibiotics) (Verified Allergy, Unknown, UNKNOWN, ) Medications Acetaminophen (Acetaminophen) 325 Mg Tablet 650 MG PO Q6H PRN PRN For Pain ( Reported) Last Taken: 650 MG on Unknown Date & Time Amlodipine (Amlodipine) 5 Mg Tablet 5 MG PO DAILY (Reported) Last Taken: 5 MG on 03/04/17 08 Amphet Asp/Amphet/D-Amphet (Adderall) 20 Mg Tablet 20 MG PO BID (Reported) Last Taken: 20 MG on 03/04/17 08 Aripiprazole (Abilify) 10 Mg Tablet 10 MG PO DAILY (Reported) Last Taken: 10 MG on 03/04/17 08 Aspirin (Aspirin) 81 Mg Tablet 81 MG PO DAILY (Reported) Last Taken: 81 MG on 03/04/17 08 Atorvastatin Calcium (Atorvastatin Calcium ) 10 Mg Tablet 5 MG PO HS (Reported) Last Taken: 5 MG on 03/03/17 2100 Calcitriol (Calcitriol) 0.001 Gm Crystals 1 MCG PO QID (Reported) Last Taken: 1 MCG on 03/04/17 1200 Calcium Carbonate (Tums) 500 Mg Tab.chew 3, 000 MG PO TID (Reported) Last Taken: 3,000 on 03/04/17 1200 Carvedilol (Carvedilol) 25 Mg Tablet 25 MG PO BID (Reported) Last Taken: 25 MG on 03/04/17 08 Cholecalciferol (Vitamin D3) (Vitamin D3) 5 ,000 Unit Tab.rapdis 5,000 UNIT PO DAILY (Reported) Last Taken: 5,000 on 03/04/17 0800 Citalopram (Citalopram) 40 Mg Tablet 40 MG PO DAILY (Reported) Last Taken: 40 MG on 03/04/17 08 Clonidine (Clonidine) 0.1 Mg Tablet 0.1 MG PO BID PRN PRN HYPERtension (Reported) Last Taken: 0.1 on Unknown Date & Time Darbepoetin Osbaldo in Polysorbat ( Aranesp) 40 Mcg/0.4 Ml Syringe 40 MCG IJ MONDAYS (Reported) Last Taken: 40 MCG on Unknown Date & Time Folic Acid/Vit Bcomp,C (Renal- Bhavna Tablet) 0.8 Mg Tablet 0.8 MG PO DAILY (Reported) Last Taken: Unknown Dose on 03/04/17 08 Gabapentin (Gabapentin) 300 Mg Capsule 300 MG PO HS (Reported) Last Taken: 300 MG on 03/03/17 2100 Glycopyrrolate (Glycopyrrolate) 1 Mg Tablet 1 MG PO TID (Reported) Last Taken: 1 MG on 03/04/17 1200 Hydromorphone (Hydromorphone) 2 Mg Tablet 2 MG PO Q6H PRN PRN Pain (Reported) Last Taken: 2-4 MG on Unknown Date & Time Insulin Aspart (NovoLOG U-100 Pen ) 100 Unit/Ml Insuln.pen 1 SUBQ TIDAC (Reported) Last Taken: UNKNOWN on 03/04/17 Insulin Glargine (Lantus U100 Insulin Vial) 100 Unit/Ml Vial 4 UNIT SUBQ HS (Reported) Last Taken: Unknown Dose on 03/03/17 2100 Levetiracetam (Keppra) 1,000 Mg Tablet 1,000 MG PO DAILY (Reported) Last Taken: 1,000 MG on 03/04/17 0800 Levetiracetam (Keppra) 250 Mg Tablet 250 MG PO DAILY (Reported) Last Taken: 250 MG on Unknown Date & Time Lipase/Protease/Amylase (Zenpep DR ) 15,000 Unit Capsule 1 EACH PO TIDWM (Reported) Last Taken: Unknown Dose on 03/04/17 Loperamide (Loperamide) 2 Mg Capsule 2 MG PO Q4 PRN PRN For Diarrhea or Loose Stool (Reported) Last Taken: 2 MG on Unknown Date & Time Magnesium Oxide (Magnesium) 400 Mg Capsule 400 MG PO DAILY (Reported) Last Taken: 400 MG on 03/04/17 0800 Metoclopramide (Reglan) 5 Mg Tablet 10 PO ACHS PRN PRN For Nausea (Reported) Last Taken: Unknown Dose on Unknown Date & Time Ondansetron (Zofran) 4 Mg Tablet 4 MG PO Q6 PRN PRN For Nausea (Reported) Last Taken: Unknown Dose on Unknown Date & Time Pantoprazole DR ( Pantoprazole DR) 40 Mg Tablet.dr 40 MG PO DAILY (Reported) Last Taken: 40 MG on 03/04/17 0800 Promethazine (Promethazine) 25 Mg Tablet 25 MG PO Q4 PRN PRN For Nausea/Vomiting (Reported) Last Taken: 25 MG on Unknown Date & Time Tacrolimus (Tacrolimus) 1 Mg Capsule 4 MG PO HS (Reported) Last Taken: 4 MG on 03/03/17 2100 Tacrolimus (Tacrolimus) 1 Mg Capsule 3 MG PO MORNING (Reported) Last Taken: 3 MG on 03/04/17 0800 Warfarin Sodium (Warfarin Sodium) 2 Mg Tablet 2 MG PO HS (Reported) Last Taken: 2 MG on 03/03/17 2100 Discontinued Medications ([Phoslo]) 2 TAB PO TIDWM (Reported) Amlodipine (Amlodipine) 5 Mg Tablet 5 MG PO ASDIRECTED (Reported) Calcium Acetate (Phoslyra) 667 Mg/5 Ml Solution 667 MG PO TIDWM (Reported) Carvedilol (Carvedilol) 25 Mg Tablet 12.5 MG PO DAILY PRN PRN elevated blood pressure (Reported) Cholecalciferol (Vitamin D3) (Vitamin D3) 2,000 Unit Tablet 2,000 UNIT PO DAILY (Reported) Docusate Calcium (Stool Softener) 240 Mg Capsule 200 MG PO BID (Reported) Last Taken: 200 MG on Unknown Date & Time Docusate Sodium (Docusate Sodium) 250 Mg Capsule 250 MG PO BID PRN PRN For Constipation (Reported) Glycopyrrolate (Glycopyrrolate) 1 Mg Tablet 0.5 MG PO TID (Reported) Insulin Aspart (NovoLOG U-100 Pen) 100 Unit/Ml Insuln.pen (Reported) Insulin Human Lispro (HumaLOG U100 Insulin Vial) 100 Unit/Ml Unit U SUBQ SS ( Reported) Blood Sugar Lispro Correction <151 0 units 151-175 1 unit 176-200 2 units 201-225 3 units 226-250 4 units 251-275 5 units 276-300 6 units 301-325 7 units 326-350 8 units 351-375 9 units 376-400 10 units >400 12 units Check blood sugars before meals and at bedtime. Use correction factor only before meals. Lipase/Protease/Amylase (Zenpep ) 1 Each Capsule.dr 8 CAPSULE PO TIDWM ( Reported) Pantoprazole (Pantoprazole ) 20 Mg Tablet. 20 MG PO DAILY (Reported) Polyethylene Glycol 3350 (Polyethylene Glycol 3350) 17 Gm Powd.pack 17 GM PO BID (Reported) Prochlorperazine Maleate (Prochlorperazine Suppository) 25 Mg Supp.rect 25 MG RC PRN For Nausea/Vomiting (Reported) Sennosides (Senna) 8.6 Mg Tablet 17.2 MG PO HS (Reported) Last Taken: 17.2 on Unknown Date & Time Tacrolimus (Tacrolimus) 1 Mg Capsule 2 MG PO BID (Reported) Tamsulosin (Flomax) 0.4 Mg Capsule 0.4 MG PO DAILY Prescribed by: JULIANA BOONE MD Vitamin B Complex/Vit C (Matilde-Bhavna Tablet) 1 Tab Tab 1 TAB PO DAILY (Reported) Past Surgical History Surgeries: Yes Patient/Family Past Surgical: Positive for:: Accept Blood Products?, Blood Transfusions, Denies:: Anesthesia Reactions, Blood Transfuse Reaction, Malignant Hyperthermia Other Pertinent Data: Aortic valve replacement, January 09, 2017 3 gland parathyroidectomy, [id number] Liver transplantation, October, Exploratory laparotomy with JOSE MARIA reconstruction following liver transplant Repair of ventral hernia Left forearm AV fistula PMH Other History Other History/Comments 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 Dialyzes MWF and makes ~ 1 cup of urine per day. Type 1 diabetes Bicuspid aortic valve and aortic stenosis Cerebellar CVA with no residual deficits Hyperparthyroidism Candidal esophagitis Anemia of chronic disease Chronic pancreatic insufficiency Hypertension with hypertensive nephrosclerosis Depression Hoarse voice likely 2/2 iatrogenic RLN injury during median sternotomy and AVR Social History Hx Alcohol Use: NoHx Substance Use: Yes (Marijuana)Hx Tobacco Use: No Living Arrangement: with Family (He lives with his and daugther.) Family History Family History: Reviewed and non-contributory to the current problem. Objective Exam Vital Signs & I/O Vital Sign- Last 8 Hours Date Time Temp Pulse Resp B/P Pulse Ox O2 Delivery O2 Flow Rate FiO2 03/05/17 19:13 36.4 74 16 164/83 97 Room Air 03/05/17 12:20 36.5 75 18 160/88 99 Room Air Intake and Output- Last 8 Hour 03/05/17 Cumulative From/Thru 07:00 03/04/17 15:13 - 03/05/17 05:58 Intake Total 0 ml 0 ml Output Total 400 ml 400 ml Balance -400 ml -400 ml Intake Oral 0 ml 0 ml Output Urine Total 400 ml 400 ml Lab & Micro Results Laboratory Tests Test 03/05/17 01:05 03/05/17 05:45 03/05/17 09:10 03/05/17 14:50 Urine Color Straw (YELLOW) Urine Appearance Clear (CLEAR,HAZY) Urine pH 6.5 (5.0-8.0) Urine Specific [place] 1.009 (1.003-1.035) Urine Protein 100mg/dL (NEG,TRACE) Urine Glucose (UA) 500mg/dL (NEGATIVE) Urine Ketones Negativemg/dL (NEGATIVE) Urine Occult Blood Trace (NEGATIVE) Urine Nitrite Negative (NEGATIVE) Urine Bilirubin Negative (NEGATIVE) Urine Urobilinogen Normalmg/dL (NORMAL) Urine Leukocyte Esterase Negative (NEGATIVE) Urine RBC 0-2/hpf (0-2) Urine WBC 0-5/hpf (0-5) Urine Epithelial Cells None/hpf (NONE-MOD) Urine Crystals None seen (NONE SEEN) Urine Bacteria None/hpf (NONE-FEW) Urine Hyaline Casts None/lpf (NONE) Urine Granular Casts None seen (NONE SEEN) Urine Waxy Casts None seen (NONE SEEN) Urine Red Blood Cell Casts None seen (NONE SEEN) Urine White Blood Cell Casts None seen (NONE SEEN) Urine Mucus None seen (None Seen) Urine Trichomonas None seen (NONE SEEN) Urine Yeast None (NONE SEEN) Urinalysis Comment None Urine Culture Reflexed Not indicated White Blood Count 6.3th/mm3 (3.8-10.1) Red Blood Count 3.49mil/mm3 (4.40-5.80) Hemoglobin 9.5g/dL (13.8-17.2) Hematocrit 29.8% (41.0-50.0) Mean Corpuscular Volume 85.4fL (81-100) Mean Corpuscular Hemoglobin 27.2pg (27.0-35.0) Mean Corpuscular Hemoglobin Concent 31.9% (32.0-37.0) Red Cell Distribution Width 15.5% (12.3-15.4) Platelet Count 143bil/L (150-400) Neutrophils (%) (Auto) 57.5% (40-74) Lymphocytes (%) (Auto) 21.8% (14-46) Monocytes (%) (Auto) 9.5% (4-12) Eosinophils (%) (Auto) 9.8% (0-5) Basophils (%) (Auto) 0.6% (0-3) Sodium Level 134mEq/L (134-144) Potassium Level 5.1mEq/L (3.5-5.2) Chloride Level 97mEq/L (97-108) Carbon Dioxide Level 21mmol/L (18-29) Blood Urea Nitrogen 35mg/dL (6-20) Creatinine 4.84mg/dL (0.76-1.27) Estimat Glomerular Filtration Rate 15mL/min (>59) Glucose Level 126mg/dL (60-99) Calcium Level 9.2mg/dL (8.5-10.1) Total Bilirubin 0.4mg/dL (0.0-1.2) Aspartate Amino Transf (AST/SGOT) 21U/L (0-50) Alanine Aminotransferase (ALT/SGPT) 24U/L (0-44) Alkaline Phosphatase 76U/L (25-150) Total Protein 6.2g/dL (6.4-8.4) Albumin 3.5g/dL (3.4-5.0) Prothrombin Time 31.4sec (8.1-12.5) Prothromb Time International Ratio 2.87ratio Troponin T 0.565ug/L (0.0-0.011) 0.538ug/L (0.0-0.011) Result Diagram: 03/05/1754403/05/17544 Review of Systems: Comprehensive ROS was obtained and is otherwise negative in relation to the chief complaint. H&P Surgical Exam Exam General: Alert, Oriented X3, Cooperative, No Acute Distress HEENT: Within normal limits & unremarkable, Other (Well healed transverse cervical incision.) Respiratory: Clear to Auscultation Cardiac: Regular Rate/Rhythm, Other (Prominent mechanical heart sounds consistent with AVR. Well healed midline sternotomy scar. ) Abdomen: Normal bowel sounds, Soft, No masses, Other (Well healed midline laparotomy and chevron incisions. Mild tenderness to deep palpation in RLQ and LUQ. ) Musculoskeletal: Tenderness to palpation over the Right lower paraspinous muscles. No reproducible pain with flexion/extension of the right leg at the hip. Additional Information Neuro: 5/5 strength in bilateral lower extremities. Baseline neuropathy and sensory deficits. Assessment & Plan Assessment Medically and surgically complex 36 year old male who presents with back pain and right groin pain with a slowly enlarging ovoid mass which seems to arise from the right psoas muscle. It is unclear if this is the source of the patient 's pain at this time. He certainly has right paraspinal muscle tenderness and RLQ tenderness to palpation. However, there do not appear to be any inflammatory changes surrounding this mass and it is presumable a chronic, indolent growth in comparing his axial imaging to 2015. VTE Prophylaxis: Sub-Q Heparin (Unfractionated) VTE Mechanical Devices: Intermittant Pneumatic CD Plan: At this time, we would recommend CT guided biopsy to establish a tissue diagnosis. There appears to be an acceptable window for biopsy if the interventional radiology teams feels this a safe approach. A contrasted CT scan could establish if this mass is vascular in nature, which may alter the safety profile of a biopsy. Nephrology recommendations regarding contrast administration would be appreciated. Should this mass require surgery, the patient would likely be best serviced at [facility], where his liver and heart surgeries were performed. Thank you for the interesting consultation. We will continue to follow along in the patient's care. Resuscitation Status: CPR: Attempt Resuscitation Kvng Perez MD Mar 05, 2017 19:39
[2017-03-05] MEDS ORDERED: Insulin GLARgine 100 Unit/mL Syringe SUBQ SCH (21:00)
[2017-03-06 00:33] VITALS: BP 166/96; PULSE 72; RESP 18; O2SAT 98
--- NOTE | 2017-03-06 00:45 | NUR ---
PAIN Pt complained of back/leg pain during the night. Administered morphine, effective. Pt resting with eyes closed. No s/sx of pain or discomfort at this time. Will continue to monitor.
[2017-03-06 04:55] VITALS: BP 171/101; PULSE 70; RESP 18; O2SAT 99
[2017-03-06 06:26] LABS: EOSINOPHILS % (AUTO) 9.5 % (0-5); MONOCYTES % (AUTO) 7.8 % (4-12); Mean Corpuscular Hemoglobin 27.8 pg (27.0-35.0); Mean Corpuscular Volume 84.9 fL (81-100); NEUTROPHILS % (AUTO) 56.3 % (40-74); Platelet Count 154 bil/L (150-400)
[2017-03-06 06:59] LABS: Magnesium 2.1 mg/dL (1.6-2.6)
[2017-03-06 07:43] LABS: INR 3.71 ratio
[2017-03-06] MEDS: MetoCLOpramide 5 mg/mL 2 mL Inj IVPUSH PRN ×2 (07:48→13:40)
[2017-03-06] MEDS: Pantoprazole 40 mg ER24 Tablet PO SCH (07:48)
[2017-03-06] MEDS: Insulin LISPRO 300 Unit/3 mL Inj SUBQ SCH ×3 (07:51→17:30)
[2017-03-06] MEDS: Pancrelipase 5,000 Unit Capsule PO SCH ×3 (07:51→17:30)
--- NOTE | 2017-03-06 08:45 | NUR ---
Pt down to Dialysis, Rm [id number]. Tele notified, report to NEERU Wetzel
--- NOTE | 2017-03-06 08:49 | PCM.PNSURG ---
Subjective Visit Information: Reason for Visit N Stemi Aucte Or Chronic Kidney Disease Surgery/Surgery Date Post-Op Day # Date of Admission: Mar 04, 2017 at 22:12 Hospital Day # Subjective: Case reviewed with IR. Recommend CT with contrast in anticipation of probable biopsy. Discussed with Dr. Fernandez (nephrology), who agrees this is OK. Objective Vital Sign- Last 8 Hours Date Time Temp Pulse Resp B/P Pulse Ox O2 Delivery O2 Flow Rate FiO2 03/06/17 04:55 36.8 70 18 171/101 99 Room Air Intake and Output- Last 8 Hour 03/06/17 Cumulative From/Thru 07:00 03/04/17 15:13 - 03/06/17 06:22 Intake Total 473 ml 1153 ml Output Total 1000 ml Balance 473 ml 153 ml Intake Oral 473 ml 1153 ml Output Urine Total 700 ml Emesis 300 ml # Voids 1 1 # Bowel Movements 1 1 Result Diagram: 03/06/17 0605 03/06/17 0605 Assessment & Plan Impression 36yom with slowly growing R psoas mass, likely symptomatic, present since at least 2014. Problems: Plan CT with multiphase contrast today. Recommend IR biopsy as outpatient. Bridging of anticoagulation will need to be arranged for this. F/U with me as outpatient after biopsy is complete to review the results and establish disposition. VTE Prophylaxis: Sub-Q Heparin (Unfractionated) Resuscitation Status: CPR: Attempt Resuscitation Carolyn Villatoro MD Mar 06, 2017 08:48
[2017-03-06 10:01] VITALS: PULSE 70
--- NOTE | 2017-03-06 10:15 | NUR ---
Social Work-readiness for discharge: Data:EMR reviewed. Pt is on day 2 of hospitalization for N stemi per H&P. Pt is not medically stable anticipate 1-2 more days. Pt resides at home with his and is independent at baseline. Pt goes to dialysis M/W/F. Per RN notes, pt has been up in the room. Pt's to provide transport home at discharge. No anticipated discharge needs. SW will continue to follow if needs arise. Assessment:Pt who is independent at baseline. Plan:Pt to discharge home when medically stable via POV. No anticipated discharge needs. SW will continue to follow if needs arise. LUPIS Garcia
--- NOTE | 2017-03-06 11:41 | PCM.PHAPRO ---
Progress Back/groin/leg pain RPh NTV RTM AK Date -Mar 4-Mar 06-Mar INR 2.37 2.37 3.71 INR change 1.34 Warf Dose UNK 2 HOLD Pharmacy will continue to follow Shannon Cedillo PharmD Mar 06, 2017 11:41
--- NOTE | 2017-03-06 11:56 | PCM.PNNEPH ---
Subjective Date of Service Mar 06, 2017 Subjective Pt is seen during HD, stable BP. Mild pain. no F/C/N/V/CP/SOB. Exam Vital Signs Vital Sign - Last Date Time Temp Pulse Resp B/P Pulse Ox O2 Delivery O2 Flow Rate FiO2 03/06/17 10:01 70 03/06/17 04:55 36.8 18 171/101 99 Room Air Intake and Output 03/05/17 03/05/17 03/06/17 Cumulative From/Thru 15:00 23:00 07:00 03/04/17 15:13 - 03/06/17 06:22 Intake Total 680 ml 473 ml 1153 ml Output Total 600 ml 1000 ml Balance 80 ml 473 ml 153 ml Intake Oral 680 ml 473 ml 1153 ml Output Urine Total 300 ml 700 ml Emesis 300 ml 300 ml # Voids 1 1 # Bowel Movements 0 1 1 Exam General appearance: Awake, alert, oriented x3. No acute distress. Thin. HEENT: Mild pallor. No jaundice. No JVD. No lymphadenopathy. No thyroid enlargement. Heart: Regular rhythm. Normal S1, S2. Systolic murmur noted, valve click noted. Abdomen: Soft, nontender, nondistended. No hepatosplenomegaly. Extremities: No edema, cyanosis or clubbing of fingers. AVF with good thrill and bruit. Lab and Diagnostics Result Diagram: 03/06/17 0603/06/17 0605 X-Rays, CTs and MRIs Date of Service: 03/04/17 1618 PROCEDURE: X-RAY CHEST ONE VIEW, PORTABLE ([id number]) IMPRESSION: No acute cardiopulmonary disease. Dictated by: Wayne Loyd M.D. on 03/04/2017 at 16:49 Approved by: Wayne Loyd M.D. on 03/04/2017 at 16:50 Date of Service: 03/04/17 1728 PROCEDURE: CT CHEST, ABDOMEN AND PELVIS WITHOUT CONTRAST ([id number]) IMPRESSION: Normal appendix. Trace right pleural effusion and bibasilar dependent atelectasis. Slowly enlarging ovoid right paraspinal mass, however only indolent growth since 12/16/14. This raises the possibility of neurogenic tumor, among other benign and malignant possibilities.Recommend surgical consultation and management. This is probably not related to patient's symptoms, however please correlate clinically. Circumferential rectal wall thickening however this is grossly unchanged in appearance and recommend clinical correlation. No acute abnormality. Additional chronic and incidental findings as above. Dictated by: Santiago Hutton M.D. on 03/04/2017 at 18:50 Approved by: Santiago Hutton M.D. on 03/04/2017 at 19:05 Date of Service: 03/04/17 1728 PROCEDURE: CT BRAIN WITHOUT CONTRAST ([id number]) IMPRESSION: No acute intracranial process Dictated by: Santiago Hutton M.D. on 03/04/2017 at 18:49 Approved by: Santiago Hutton M.D. on 03/04/2017 at 18:50 Plan Impression 1. End-stage renal disease, on hemodialysis every Saturday, Saturday, and Saturday. 4hr, 2L UF, 2K, 35HCO3 DFR 600, BFR 400, AVF, revaclear. 2. Paraspinal mass r/o neoplasm vs chronic infection. 3. Primary sclerosing cholangitis status post liver transplant in 2012. 4. Severe aortic stenosis with bicuspid aortic valve status post aortic valve replacement on chronic anticoagulant. 5. Immunocompromised host. 6. Hypertension with hypertensive nephrosclerosis. 7. Anemia of chronic kidney disease. 8. Hyperparathyroidism status post parathyroidectomy. Plan: Next HD on Saturday. No objection to proceed with CT abd with IV contrast. Increase norvasc and add losartan for better BP control. Randall Fernandez MD Mar 06, 2017 11:56
--- NOTE | 2017-03-06 13:03 | NUR ---
Dialysis note 4 hr HD tx 2000ml net UF removed 2 15 g needles to LL fistula QB 450 See DTR for complete vitals trends Pt rested comfortably thru tx without complaints Sureseals/clamps X10 mins post tx Report given and pt returned to floor stable.
[2017-03-06] MEDS: ARIPiprazole 10 mg Tablet PO SCH (13:42)
[2017-03-06] MEDS: levETIRAcetam 500 mg Tablet PO SCH (13:42)
[2017-03-06 14:52] VITALS: BP 185/103; PULSE 77; RESP 18; O2SAT 98
[2017-03-06] MEDS ORDERED: HYDROmorphone 0.5 mg/0.5 mL iSecure Syringe IVPUSH ONE (15:05)
[2017-03-06] MEDS: Ondansetron 2 mg/mL 2 mL Inj IVPUSH PRN (15:13)
[2017-03-06 15:48] VITALS: BP 176/100
--- NOTE | 2017-03-06 16:26 | NUR ---
BP/Pain Held pt heart medications for dialysis this AM. Once back in room, administered remaining medications. Given Reglan prior for gastroparesis to keep meds down and IV morphine for typical 6/10 back pain. Pt had no nausea, but post 30 min medication BP was still elevated. Pt also reported increased pain 7/10, pt having difficulty tolerating pain level. BP 185/103, HR 77. Kept HOB elevated for nausea toleration. Paged MD for update. New one time dose of Dilaudid for pain contol. Administered with IV Zofran for toleration. Pt reports some relief but pain continues. Adjusted position with bed flat to see if comfort improves. Continuing to monitor.
--- NOTE | 2017-03-06 16:59 | PCM.DIMED ---
Discharge Instructions Date of Service Mar 06, 2017 Dates of Hospitalization Mar 04, 2017 at 22:12 Discharge Diagnosis Discharge Diagnosis # Acute back and groin pain, improving. #. Chronic right paraspinal mass, stable. Will continue workup outpatient. # Type I Diabetes mellitus. Stable. # Chronic anemia. Stable. # Elevated troponin, chronic and stable. # End-stage renal disease, on hemodialysis-MWF. Stable. # Hypertension, stable # ADHD, stable. # Depression, stable. # Hx of cerebellar CVA # Hx of seizures, stable. # Hx of aortic valve replacement # Hx of liver transplant # GERD Diet Discharge Diet: Diabetic Activity Discharge Activity: No restrictions Call your provider Call your provider for: Fever or Chills, Other (increased back pain) Patient Instructions Patient Instructions Follow up with [facility] as scheduled. Will coordinate biopsy with [facility]. Misael Burnette MD Mar 06, 2017 16:59
[2017-03-06] MEDS ORDERED: HYDR2TAB28 PO (17:00)
--- NOTE | 2017-03-06 17:34 | PCM.DC.MED ---
Discharge Summary Date of Service Mar 06, 2017 Dates of Hospitalization Date of Hospital Admission Mar 04, 2017 at 22:12 Date of Discharge: Mar 06, 2017 Providers: Admitting Physician: Cecilio Pérez Primary Care Physician: Praveen Mccann MD Attending Physician: Cecilio Pérez Diagnosis at Time of Discharge Diagnosis at Time of Discharge # Acute back and groin pain, improving. #. Chronic right paraspinal mass, stable. Will continue workup outpatient. # Type I Diabetes mellitus. Stable. # Chronic anemia. Stable. # Elevated troponin, chronic and stable. # End-stage renal disease, on hemodialysis-MWF. Stable. # Hypertension, stable # ADHD, stable. # Depression, stable. # Hx of cerebellar CVA # Hx of seizures, stable. # Hx of aortic valve replacement # Hx of liver transplant # GERD Consultations Dr Villatoro, surgery Dr Benson, nephrology Procedures XRay, CTs & MRIs Date of Service: 03/04/17 1618 PROCEDURE: X-RAY CHEST ONE VIEW, PORTABLE ([id number]) IMPRESSION: No acute cardiopulmonary disease. Dictated by: Wayne Loyd M.D. on 03/04/2017 at 16:49 Approved by: Wayne Loyd M.D. on 03/04/2017 at 16:50 Date of Service: 03/04/17 1728 PROCEDURE: CT CHEST, ABDOMEN AND PELVIS WITHOUT CONTRAST ([id number]) IMPRESSION: Normal appendix. Trace right pleural effusion and bibasilar dependent atelectasis. Slowly enlarging ovoid right paraspinal mass, however only indolent growth since 12/16/14. This raises the possibility of neurogenic tumor, among other benign and malignant possibilities.Recommend surgical consultation and management. This is probably not related to patient's symptoms, however please correlate clinically. Circumferential rectal wall thickening however this is grossly unchanged in appearance and recommend clinical correlation. No acute abnormality. Additional chronic and incidental findings as above. Dictated by: Santiago Hutton M.D. on 03/04/2017 at 18:50 Approved by: Santiago Hutton M.D. on 03/04/2017 at 19:05 Date of Service: 03/04/17 1728 PROCEDURE: CT BRAIN WITHOUT CONTRAST ([id number]) IMPRESSION: No acute intracranial process Dictated by: Santiago Hutton M.D. on 03/04/2017 at 18:49 Approved by: Santiago Hutton M.D. 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 He reports the pain began today just after he finished dialysis at around 11:30 AM, rapidly worsening from a 2/10 throbbing pain to a constant 7/10. He states it is now 5/10. He states he noticed right leg weakness on flexing his hip over the last 3 days. He also reports a temporal headache and cough. He has a recent history of an aortic valve replacement in December 2016 and is on Coumadin. Denies any urinary or bowel incontinence, numbness or tingling, fever, chills, new chest pain, abdominal pain, SOB, change in bowel habits, or any other symptoms at this time. Pt states that he has had a similar back spasm pain in the past after his kidney transplant. On admission, temp 36.4, HR 78, RR 20, BP 173/102. WBC 7.1. Hb 9.3, Hct 28.6, plt 129. Na 132, BUN 23, Cr 3.55, glucose 300. Lactic acid 1.4. Trop 0.478, proBNP 35937. UA negative. CT chest/abd/pelvis without contrast showed trace right pleural effusion and bibasilar dependent atelectasis as well as a slowly enlarging ovoid right paraspinal mass, with only indolent growth since 12/16/14. CXR and head CT were negative. 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 # Acute back and groin pain, present on admission. - CT chest/abd/pelvis shows right paraspinal mass adjacent to the right psoas muscle, consistent with his symptoms. - While psoas abscess is somewhat of a concern given his immunosuppressed state , this is less likely, as WBC is normal, pt has no fever, and the mass has been present since 2014. - Surgery consulted today. Will followup with recs - Continue with supportive care including Morphine 1-2 mg q4h IV PRN pain # Type I Diabetes mellitus. Currently well controlled - HgA1C pending - Continue with Lantus 7 U qhs (half dose as pt had nausea/vomiting) - Humalog medium dose correctional scale - Start nutritional insulin when pt is taking PO regularly - Continue gabapentin # Chronic anemia. Present on admission. - Likely secondary to ESRD. Pt is on Aranesp. - Monitor H&H for acute changes. Transfuse for Hb <7. - Continue home Aranesp # Elevated troponin, chronic. - No chest pain - Was seen by cardiology in December 2016 and underwent aortic valve replacement at [facility] at that time - No further workup for now unless becomes symptomatic # End-stage renal disease, on hemodialysis-MWF. - Discussed with Nephrology today and will try to see him tomorrow for his dialysis # Hypertension, acute on chronic. - BP 173/102 on admission. - Possibly elevated secondary to pain. - Continue home amlodipine, carvedilol - Monitor BP closely. - Pain control # ADHD - Hold home Adderall as pt is hypertensive # Depression - Continue Abilify, citalopram # Hx of cerebellar CVA - Continue aspirin and atorvastatin # Hx of seizures - Continue home Keppra # Hx of aortic valve replacement - Continue warfarin - Follow daily INR # Hx of liver transplant - Continue tacrolimus # GERD - Continue Protonix Dispo: 1-2 days pending above workup Exam Vital Signs (Last) Date Time Temp Pulse Resp B/P Pulse Ox O2 Delivery O2 Flow Rate FiO2 03/06/17 15:48 176/100 03/06/17 14:52 36.3 77 18 98 Room Air Exam Patient was seen and examined on the day of discharge Test 03/04/17 15:50 03/05/17 01:05 03/05/17 05:45 03/05/17 14:50 Hold Purple Top Tube Received (Received) Hold Blue Top Tube Received (Received) Lactic Acid Level 1.4mmol/L (0.4-2.0) Pro-B-Type Natriuretic Peptide 02150af/mL (0-86) Procalcitonin 0.33ng/mL (0.00-0.08) Hold Casco Top Tube Received (Received) Hold Lynn Top Tube Received (Received) Urine Color Straw (YELLOW) Urine Appearance Clear (CLEAR,HAZY) Urine pH 6.5 (5.0-8.0) Urine Specific [place] 1.009 (1.003-1.035) Urine Protein 100mg/dL (NEG,TRACE) Urine Glucose (UA) 500mg/dL (NEGATIVE) Urine Ketones Negativemg/dL (NEGATIVE) Urine Occult Blood Trace (NEGATIVE) Urine Nitrite Negative (NEGATIVE) Urine Bilirubin Negative (NEGATIVE) Urine Urobilinogen Normalmg/dL (NORMAL) Urine Leukocyte Esterase Negative (NEGATIVE) Urine RBC 0-2/hpf (0-2) Urine WBC 0-5/hpf (0-5) Urine Epithelial Cells None/hpf (NONE-MOD) Urine Crystals None seen (NONE SEEN) Urine Bacteria None/hpf (NONE-FEW) Urine Hyaline Casts None/lpf (NONE) Urine Granular Casts None seen (NONE SEEN) Urine Waxy Casts None seen (NONE SEEN) Urine Red Blood Cell Casts None seen (NONE SEEN) Urine White Blood Cell Casts None seen (NONE SEEN) Urine Mucus None seen (None Seen) Urine Trichomonas None seen (NONE SEEN) Urine Yeast None (NONE SEEN) Urinalysis Comment None Urine Culture Reflexed Not indicated Total Bilirubin 0.4mg/dL (0.0-1.2) Aspartate Amino Transf (AST/SGOT) 21U/L (0-50) Alanine Aminotransferase (ALT/SGPT) 24U/L (0-44) Alkaline Phosphatase 76U/L (25-150) Total Protein 6.2g/dL (6.4-8.4) Albumin 3.5g/dL (3.4-5.0) Troponin T 0.538ug/L (0.0-0.011) Test 03/06/17 06:05 White Blood Count 7.0th/mm3 (3.8-10.1) Red Blood Count 3.70mil/mm3 (4.40-5.80) Hemoglobin 10.3g/dL (13.8-17.2) Hematocrit 31.4% (41.0-50.0) Mean Corpuscular Volume 84.9fL (81-100) Mean Corpuscular Hemoglobin 27.8pg (27.0-35.0) Mean Corpuscular Hemoglobin Concent 32.8% (32.0-37.0) Red Cell Distribution Width 15.6% (12.3-15.4) Platelet Count 154bil/L (150-400) Neutrophils (%) (Auto) 56.3% (40-74) Lymphocytes (%) (Auto) 24.8% (14-46) Monocytes (%) (Auto) 7.8% (4-12) Eosinophils (%) (Auto) 9.5% (0-5) Basophils (%) (Auto) 1.0% (0-3) Prothrombin Time 40.8sec (8.1-12.5) Prothromb Time International Ratio 3.71ratio Sodium Level 136mEq/L (134-144) Potassium Level 5.6mEq/L (3.5-5.2) Chloride Level 96mEq/L (97-108) Carbon Dioxide Level 19mmol/L (18-29) Blood Urea Nitrogen 51mg/dL (6-20) Creatinine 6.50mg/dL (0.76-1.27) Estimat Glomerular Filtration Rate 10mL/min (>59) Glucose Level 101mg/dL (60-99) Calcium Level 8.5mg/dL (8.5-10.1) Magnesium Level 2.1mg/dL (1.6-2.6) Microbiology Results Blood cultures 2 pending at time of discharge Discharge Medications Discharge Medications Amlodipine (Amlodipine) 5 Mg Tablet 5 MG PO DAILY (Reported) Amphet Asp/Amphet/D-Amphet (Adderall) 20 Mg Tablet 20 MG PO BID (Reported) Aripiprazole (Abilify) 10 Mg Tablet 10 MG PO DAILY (Reported) Aspirin (Aspirin) 81 Mg Tablet 81 MG PO DAILY (Reported) Atorvastatin Calcium (Atorvastatin Calcium) 10 Mg Tablet 5 MG PO HS (Reported) Calcitriol (Calcitriol) 0.001 Gm Crystals 1 MCG PO QID (Reported) Calcium Carbonate (Tums) 500 Mg Tab.chew 3,000 MG PO TID (Reported) Carvedilol (Carvedilol) 25 Mg Tablet 25 MG PO BID (Reported) Cholecalciferol (Vitamin D3) (Vitamin D3) 5,000 Unit Tab.rapdis 5,000 UNIT PO DAILY (Reported) Citalopram (Citalopram) 40 Mg Tablet 40 MG PO DAILY (Reported) Darbepoetin Osbaldo in Polysorbat (Aranesp) 40 Mcg/0.4 Ml Syringe 40 MCG IJ MONDAYS (Reported) Folic Acid/Vit Bcomp,C (Renal-Bhavna Tablet) 0.8 Mg Tablet 0.8 MG PO DAILY ( Reported) Gabapentin (Gabapentin) 300 Mg Capsule 300 MG PO HS (Reported) Glycopyrrolate (Glycopyrrolate) 1 Mg Tablet 1 MG PO TID (Reported) Insulin Aspart (NovoLOG U-100 Pen) 100 Unit/Ml Insuln.pen 1 SUBQ TIDAC (Reported ) Insulin Glargine (Lantus U100 Insulin Vial) 100 Unit/Ml Vial 4 UNIT SUBQ HS ( Reported) Levetiracetam (Keppra) 1,000 Mg Tablet 1,000 MG PO DAILY (Reported) Levetiracetam (Keppra) 250 Mg Tablet 250 MG PO DAILY (Reported) Lipase/Protease/Amylase (Zenpep DR) 15,000 Unit Capsule 1 EACH PO TIDWM ( Reported) Magnesium Oxide (Magnesium) 400 Mg Capsule 400 MG PO DAILY (Reported) Pantoprazole DR (Pantoprazole DR) 40 Mg Tablet.dr 40 MG PO DAILY (Reported) Tacrolimus (Tacrolimus) 1 Mg Capsule 4 MG PO HS (Reported) Tacrolimus (Tacrolimus) 1 Mg Capsule 3 MG PO MORNING (Reported) Warfarin Sodium (Warfarin Sodium) 2 Mg Tablet 2 MG PO HS (Reported) As needed Clonidine (Clonidine) 0.1 Mg Tablet 0.1 MG PO BID PRN PRN HYPERtension (Reported ) Hydromorphone (Hydromorphone) 2 Mg Tablet 2 MG PO Q6H PRN PRN Pain Prescribed by: MISAEL ELKINS MD Loperamide (Loperamide) 2 Mg Capsule 2 MG PO Q4 PRN PRN For Diarrhea or Loose Stool (Reported) Metoclopramide (Reglan) 5 Mg Tablet 10 PO ACHS PRN PRN For Nausea (Reported) Ondansetron (Zofran) 4 Mg Tablet 4 MG PO Q6 PRN PRN For Nausea (Reported) Promethazine (Promethazine) 25 Mg Tablet 25 MG PO Q4 PRN PRN For Nausea/ Vomiting (Reported) Followup Plan Disposition: Home Follow-up plan He is followed up with [facility] hepatology next week. He will address his ongoing workup of his right paraspinal mass with them. He will likely require a CT-guided biopsy which will also require holding of Coumadin and bridging heparin. Discharge Diet: Diabetic Discharge Activity: No restrictions Patient Instructions Follow up with as scheduled. Will coordinate biopsy with [facility]. Time spent 45 minutes Misael Elkins MD Mar 06, 2017 17:34
--- NOTE | 2017-03-06 18:20 | NUR ---
Discharge Reviewed discharge paperwork, medications, and care notes with pt and -disclaimer signed. IV DCd intact, tele removed, all belongings with pt. Pt medicated for pain 5/ with IV morphine, denies SOB. Pt declined WC escort, but willing to be escorted out on foot. Pt strong and steady on feet, escorted to car - driving home.
[2017-03-11] MEDS ORDERED: Darbepoetin Alfa (ESRD) 40 mCg/0.4 mL Inj SUBQ SCH (08:30)
== END 2017-03-06 18:35 | disposition home or self-care (01) | DRG 564 ==
LOC: SED 15:10 → MPC 22:12 → OBSVTOIN 22:12
PROVIDERS: ADMIT Internal Medicine; ATTEND Internal Medicine
PROC: 5A1D00Z (ICD-10-PCS; principal; 2017-03-06)
DX: D48.1 Neoplasm of uncertain behavior of connective and other soft tissue (principal); N18.6 End stage renal disease; I12.0 Hypertensive chronic kidney disease with stage 5 chronic kidney disease or end stage renal disease; N17.9 Acute kidney failure, unspecified; Z94.4 Liver transplant status; E10.22 Type 1 diabetes mellitus with diabetic chronic kidney disease; K21.9 Gastro-esophageal reflux disease without esophagitis; D63.1 Anemia in chronic kidney disease; F90.9 Attention-deficit hyperactivity disorder, unspecified type; F32.9 Major depressive disorder, single episode, unspecified; E89.0 Postprocedural hypothyroidism; G40.909 Epilepsy, unspecified, not intractable, without status epilepticus; Z79.01 Long term (current) use of anticoagulants; Z99.2 Dependence on renal dialysis; Z95.2 Presence of prosthetic heart valve; Z79.82 Long term (current) use of aspirin; Z79.4 Long term (current) use of insulin; Z86.73 Personal history of transient ischemic attack (TIA), and cerebral infarction without residual deficits

== ENCOUNTER 2017-04-10 19:47 | Emergency (ER) | payer MEDICARE, OTHER ==
[~2017-04-10] VITALS: Ht 193 cm; Wt 70.0 kg
[~2017-04-10 19:47] MED LIST changes: +AMPH20TA5 PO; +ARIP10TA14 PO; +ASPI-973 PO; +ATOR10TA66 PO; +CALC0.002 PO; +CALC500T9 PO; -CALC667S PO; -CHOL200025 PO; +CHOL500062 PO; +CITA40TA13 PO; +CLON0.1T PO; +DARB40DI IJ; +GABA-502 PO; +HYDR2TAB28 PO; -INSLIS SUBQ; +INSU100I SUBQ; +INSU100V7 SUBQ; +KEPP250T PO; +LEVE100014 PO; -LIPA1CAP PO; +LIPA1CAP27 PO; +MAGN400C PO; -NEPHVIT PO; -PANT20TA2 PO; +PANT40TA3 PO; -PHOSLO PO; -PROC25SU3 RC; -TAMS0.4C98 PO; +WARF2TAB7 PO; +[UNRECOGNIZED DRUG - CODE] PO
[2017-04-10 19:51] VITALS: BP 208/122; PULSE 79; RESP 22; O2SAT 100
--- NOTE | 2017-04-10 21:03 | ED.REPORT ---
HPI-General Illness Date of Service Apr 10, 2017 ED Provider: Singh Keller MD A 36 year old male with a history of CVA, liver transplant, hepatorenal syndrome on dialysis, diabetes, chronic pancreatitis and aortic valve replacement presents to the ED complaining of abdominal pain. The pt had a biopsy of his psoas muscle at 10:00 this morning and has been experiencing significant abdominal pain, groin pain, nausea and vomiting since. He was given pain medication in the hospital, and has only taken 6 mg of Dilaudid since. The pt was taken off of his Coumadin for five days for the procedure and is scheduled to resume tonight. No covering heparin was given. Nursing Notes Stated Complaint: RIGHT GROIN PAIN AFTER BIOPSY, NAUSEA, VOMITING Chief Complaint: General Complaint Nursing Notes Reviewed: Yes Allergies: Coded Allergies: cinacalcet (Verified Allergy, Severe, ANAPHYLAXIS, 04/10/17) Sulfa (Sulfonamide Antibiotics) (Verified Allergy, Unknown, UNKNOWN, ) Scheduled Amlodipine (Amlodipine) 5 Mg Tablet 5 MG PO DAILY Amphet Asp/Amphet/D-Amphet (Adderall) 20 Mg Tablet 20 MG PO BID Aripiprazole (Abilify) 10 Mg Tablet 10 MG PO DAILY Aspirin (Aspirin) 81 Mg Tablet 81 MG PO DAILY Atorvastatin Calcium (Atorvastatin Calcium) 10 Mg Tablet 5 MG PO HS Calcitriol (Calcitriol) 0.001 Gm Crystals 1 MCG PO QID Calcium Carbonate (Tums) 500 Mg Tab.chew 3,000 MG PO TID Carvedilol (Carvedilol) 25 Mg Tablet 25 MG PO BID Cholecalciferol (Vitamin D3) (Vitamin D3) 5,000 Unit Tab.rapdis 5,000 UNIT PO DAILY Citalopram (Citalopram) 40 Mg Tablet 40 MG PO DAILY Darbepoetin Osbaldo in [place]ysorbat (Aranesp) 40 Mcg/0.4 Ml Syringe 40 MCG IJ MONDAYS Folic Acid/Vit Bcomp,C (Renal-Bhavna Tablet) 0.8 Mg Tablet 0.8 MG PO DAILY Gabapentin (Gabapentin) 300 Mg Capsule 300 MG PO HS Glycopyrrolate (Glycopyrrolate) 1 Mg Tablet 1 MG PO TID Insulin Aspart (NovoLOG U-100 Pen) 100 Unit/Ml Insuln.pen 1 SUBQ TIDAC Insulin Glargine (Lantus U100 Insulin Vial) 100 Unit/Ml Vial 4 UNIT SUBQ HS Levetiracetam (Keppra) 1,000 Mg Tablet 1,000 MG PO DAILY Levetiracetam (Keppra) 250 Mg Tablet 250 MG PO DAILY Lipase/Protease/Amylase (Zenpep DR) 15,000 Unit Capsule 1 EACH PO TIDWM Magnesium Oxide (Magnesium) 400 Mg Capsule 400 MG PO DAILY Pantoprazole DR (Pantoprazole DR) 40 Mg Tablet.dr 40 MG PO DAILY Tacrolimus (Tacrolimus) 1 Mg Capsule 4 MG PO HS Tacrolimus (Tacrolimus) 1 Mg Capsule 3 MG PO MORNING Warfarin Sodium (Warfarin Sodium) 2 Mg Tablet 2 MG PO HS Scheduled PRN Clonidine (Clonidine) 0.1 Mg Tablet 0.1 MG PO BID PRN PRN HYPERtension Hydromorphone (Hydromorphone) 2 Mg Tablet 2 MG PO Q6H PRN PRN Pain Loperamide (Loperamide) 2 Mg Capsule 2 MG PO Q4 PRN PRN For Diarrhea or Loose Stool Metoclopramide (Reglan) 5 Mg Tablet 10 PO ACHS PRN PRN For Nausea Ondansetron (Zofran) 4 Mg Tablet 4 MG PO Q6 PRN PRN For Nausea Promethazine (Promethazine) 25 Mg Tablet 25 MG PO Q4 PRN PRN For Nausea/ Vomiting General Time Seen by MD: 21:02 Chief Complaint Abdominal pain Hx Obtained From: Patient Arrived By: Walk-in Sudden in Onset?: No Onset Occurred: 9 - 12 hours ago Symptom Duration: Since onset Recent Healthcare: Recent doctor visit, Recent hospitalization Similar Sx Previous: No Past Medical History Past Medical History Notes: Senior Software Analyst: Dr. Osorio Past Medical History Hx of aortic valve replacement in December 2016 on Coumadin Cerebellum CVA End-stage renal disease on hemodialysis-MWF. Still produces a "good amount" of urine. Hepatorenal syndrome on dialysis Type I diabetes Primary sclerosing cholangitis, status post liver transplant, on chronic immunosuppressants Type I diabetes mellitus. Remarkably, he says he manages this with diet alone at this time. Chronic anemia GERD Pancreatic insufficiency, chronic Hypertension Kidney stones Reports: Depression Past Surgical History Liver transplant 2012 at [facility]ral hernia Left arm shunt placement Aortic valve replacement for congenital bicuspid valve Family History Noncontributory Social History Drug Use: THC Other Social History: Poor social support, , Local resident Ambulatory Status Independent Review of Systems groin pain Full Review of Systems Respiratory: Denies: Non-productive cough, Shortness of breath Cardiovascular: Denies: Chest pain GI: Reports: Abdominal pain, Nausea, Vomiting, Denies: Diarrhea Musculoskeletal: Denies: Neck pain Skin: Denies Rash Complete sys rev & neg: except as marked. Physical Exam Vital Signs Vital Signs Date Time Temp Pulse Resp B/P Pulse Ox O2 Delivery O2 Flow Rate FiO2 04/10/17 22:25 77 18 191/93 99 Room Air 04/10/17 19:51 36.6 79 22 208/122 100 Room Air Initial VS: Reviewed General/Constitutional: Awake, Alert thin chronically ill-appearing Head / Eyes: Atraumatic, Normocephalic, PERRL, EOMI ENT: Atraumatic, Airway patent Mouth: Positive: Mucous membranes dry (moderately) Neck: Atraumatic, Supple, Full range of motion Respiratory / Chest: Atraumatic, Breath sounds NL, Breath sounds = bilat, No respiratory distress Cardiovascular: Heart rate NL, Regular rhythm audible click of artificial valve soft 1/6 holosystolic murmur Abdomen: Soft moderate diffuse abdominal tenderness resistant to palpation no true rebound or guarding multiple scars from prior surgeries Back: Full range of motion prepped area with dressing no visible bruising Upper Extremities Upper Extremity / MS: Atraumatic, Full range of motion, No edema thin with muscle wasting Lower Extremity / Pelvis / MS: Atraumatic, Full range of motion, No edema thin with muscle wasting Skin: Atraumatic, No rash, Warm, Dry pale Neurologic: Oriented X3, Speech NL, No motor deficits, No sensory deficits Psychiatric: Affect NL, Mood NL Interpretation & Diagnostics Lab Results Interpretation Result Diagram: 04/10/17214704/10/172147 Test 04/10/17 21:48 04/10/17 21:49 White Blood Count 11.4th/mm3 (3.8-10.1) Red Blood Count 4.03mil/mm3 (4.40-5.80) Hemoglobin 11.7g/dL (13.8-17.2) Hematocrit 34.3% (41.0-50.0) Mean Corpuscular Volume 85.1fL (81-100) Mean Corpuscular Hemoglobin 29.0pg (27.0-35.0) Mean Corpuscular Hemoglobin Concent 34.1% (32.0-37.0) Red Cell Distribution Width 16.6% (12.3-15.4) Platelet Count 132bil/L (150-400) Neutrophils (%) (Auto) 84.7% (40-74) Lymphocytes (%) (Auto) 5.8% (14-46) Monocytes (%) (Auto) 5.6% (4-12) Eosinophils (%) (Auto) 2.9% (0-5) Basophils (%) (Auto) 0.6% (0-3) Prothrombin Time 13.2sec (8.1-12.5) Prothromb Time International Ratio 1.23ratio Sodium Level 134mEq/L (134-144) Potassium Level 4.9mEq/L (3.5-5.2) Chloride Level 92mEq/L (97-108) Carbon Dioxide Level 15mmol/L (18-29) Blood Urea Nitrogen 39mg/dL (6-20) Creatinine 7.22mg/dL (0.76-1.27) Estimat Glomerular Filtration Rate 9mL/min (>59) Glucose Level 149mg/dL (60-99) Calcium Level 8.4mg/dL (8.5-10.1) Magnesium Level 2.4mg/dL (1.6-2.6) Total Bilirubin 0.4mg/dL (0.0-1.2) Aspartate Amino Transf (AST/SGOT) 17U/L (0-50) Alanine Aminotransferase (ALT/SGPT) 25U/L (0-44) Alkaline Phosphatase 54U/L (25-150) Total Protein 7.3g/dL (6.4-8.4) Albumin 4.2g/dL (3.4-5.0) Lipase 5U/L (13-60) Hold Lynn Top Tube Received (Received) CT Abd / Pelvis Interpretation CONCLUSION: 1. 1.2 cm focus of enhancement in the superior aspect of the right psoas muscle concerning for active bleeding. Moderate amount of complex free fluid adjacent to the right psoas muscle concerning for hemorrhage. 2. 2.5 cm soft tissue mass adjacent to the superior aspect of the right psoas muscle, grossly stable in size since March 04, 2017. 3. The entire right psoas muscle is markedly enlarged with two foci of complex fluid in the midportion, new from the prior exam. These findings could represent hematoma or infection. 4. Mild wall thickening of the urinary bladder. Query cystitis. Interpretation / Wet Read by: Interpret - Radiologist Re-Eval/Medical Decision Med Decision/Clinical Course 36-year-old with complex medical history including liver transplant, ESRD secondary to hepatorenal syndrome, mechanical aortic valve recently on Coumadin taken off for percutaneous biopsy of this OS mass, presents the same day as a procedure with groin pain and back pain improves to have the expected large psoas hematoma. There is active bleeding in the CT with blush of contrast visible. There is no peritoneal bleeding there is retroperitoneal bleeding around this OS muscle in small quantity. Discussed these findings with the interventional fellow at [facility], who requested he be transferred down immediately for possible endovascular intervention. Arrangements are now being made. He did receive contrast and was due today for dialysis but did not have it because of his procedure. The was supposed to have dialysis tomorrow and should have dialysis tomorrow if at all possible, due to dye injection. Source of Hx: Old records Time of Eval: 23:01 Patient Status: Condition improved Re-Evaluation/Progress Note: Pt rechecked, whose pain has improved. CT results are discussed. Time of Eval: 23:46 Re-Evaluation/Progress Note: Pt rechecked, who is stable. The pt is informed of his diagnosis and the plan for transfer. Consultation #1: Call Returned at: 23:15 Java Software: Agrees with eval, Agrees with plan Note: Spoke with Dr. Moreno, , regarding pt's case. Dr. Moerno will review the pt's case. Consultation #2: Call Returned at: 00:18 Note: Spoke with regarding pt's transfer. Pt's transfer to the ED is accepted. Counseled Regarding: Diagnosis, Lab results, Need for transfer Discharge & Departure Primary Impression: Hematoma of left psoas region to anticoagulant therapy Encounter type: initial encounter Qualified Code: S30.1XXA - Contusion of abdominal wall, initial encounter Additional Impressions: Pain at surgical site Active bleeding Disposition: Transfer, Acute Care Facility Discharge Condition All VS Reviewed: Yes Condition: Stable Referrals: Praveen Mccann MD (PCP) Crit Care Except Billable Proc Time Spent: 30-74 minutes (thirty minutes) Services Performed: Patient management by me, Time spent at bedside, Reviewing test results, Reviewing imaging, Discussing patient care, Documentation in record, Time with fam/surrogate, Other (arranging transport and acceptance at [facility]) Scribe Attestation Portions of this note were transcribed by Agustín López. I, Dr. Keller personally performed the history, physical exam and medical decision-making; I reviewed and confirmed the accuracy of the information in the transcribed note. copies to: Praveen Mccann MD, Christopher W MD Apr 10, 2017 21:03 AGUSTÍN LÓPEZ Apr 10, 2017 21:11
[2017-04-10] MEDS ORDERED: Ondansetron 2 mg/mL 2 mL Inj IVPUSH ONE (21:15)
[2017-04-10] MEDS: HYDROmorphone 1 mg/mL Inj IM PRN ×4 (21:40→23:36)
[2017-04-10 21:53] LABS: BASOPHILS % (AUTO) 0.6 % (0-3); EOSINOPHILS % (AUTO) 2.9 % (0-5); MONOCYTES % (AUTO) 5.6 % (4-12); Mean Corpuscular Volume 85.1 fL (81-100); NEUTROPHILS % (AUTO) 84.7 % (40-74); Platelet Count 132 bil/L (150-400)
[2017-04-10 22:06] LABS: INR 1.23 ratio
[2017-04-10 22:13] LABS: Magnesium 2.4 mg/dL (1.6-2.6)
[2017-04-10 22:25] VITALS: BP 191/93; PULSE 77; RESP 18; O2SAT 99
[2017-04-11 00:44] VITALS: BP 186/96; PULSE 77; RESP 16; O2SAT 98
[2017-04-11] MEDS: HYDROmorphone 1 mg/mL Inj IM PRN (00:44)
--- NOTE | 2017-04-11 08:10 | DRSVH ---
PROCEDURE: CT ABDOMEN AND PELVIS WITH CONTRAST ([id number]) INDICATIONS: pain post psoas biopsy today TECHNIQUE: After the administration of intravenous contrast, 5 mm thick sections acquired from the diaphragm to the symphysis. 5 mm coronal and sagittal reformats were acquired. For radiation dose reduction, the following was used: automated exposure control, adjustment of mA and/or kV according to patient siz e. COMPARISON: None. FINDINGS: Image quality: Excellent. ABDOMEN: Lung bases: Lung bases are clear. Heart size is normal. Solid organs: Lateral segment of the left lobe of the liver appears to have been resected best. Splee n is enlarged somewhat nodular and slightly heterogeneous in texture. Question of small splenic infar cts. Gallbladder has been removed. Biliary system is non dilated. Minimal pneumobilia but this is pr esent more prominently on the older scan. Presumably is from previous surgery. Pancreas is atrophic w ith calcifications. No adrenal nodules. Kidneys demonstrate normal size and enhancement, without hyd ronephrosis. The right kidney is displaced because of retroperitoneal hematoma. Peritoneum and bowel: Polyps suggest some thickening of wall in colon. suggesting colitis versus julissa apsed bowel. No bowel obstruction.. No free fluid or air. The appendix is normal. Nodes and vessels: There is abnormal change in the retroperitoneum on the right in this patient with history of psoas muscle biopsy. There is a focus of increased attenuation consistent with bleeding in the central aspect of the psoas muscle at approximately the L2-3 level on the right. The psoas muscl e and fat planes around it in the retroperitoneum have become indistinct. Indistinctness extends infe riorly along the psoas muscle over the iliac is muscle and down to the inguinal region. No peritoneal fluid is seen. No retroperitoneal or mesenteric adenopathy by size criteria. Aorta and inferior jase a cava are normal in size. Miscellaneous: No ventral hernias. PELVIS: Genitourinary: Bladder wall thickness is normal. Miscellaneous: No inguinal hernias or adenopathy. Bones: No suspicious bony lesions. No vertebral body compression fractures. IMPRESSION: 1. Patient status post psoas muscle biopsy. Findings indicate active bleeding into the psoas muscle a t approximately the L2-3 level. Hematoma is confined to the retroperitoneum along the course of the p soas muscle. The psoas muscle measures approximately 7 cm in transverse dimension compared to a pallavi l diameter of approximately 3 cm. 2. Previous extensive surgery as above in the region of the liver and gallbladder and bowel loop 3. I would question colitis although unlikely. Dictated by: Eduar Jane M.D. on 04/11/2017 at 7:56 this report corresponds to the findings of e preliminary NSR report. Approved by: Eduar Jane M.D. on 04/11/2017 at 8:09
== END 2017-04-11 00:46 | disposition short-term general hospital (02) ==
LOC: SED 19:47
DX: M79.81 Nontraumatic hematoma of soft tissue (principal); R10.84 Generalized abdominal pain; R10.30 Lower abdominal pain, unspecified; G89.18 Other acute postprocedural pain; K66.1 Hemoperitoneum; K86.1 Other chronic pancreatitis; E10.22 Type 1 diabetes mellitus with diabetic chronic kidney disease; N18.6 End stage renal disease; Z86.73 Personal history of transient ischemic attack (TIA), and cerebral infarction without residual deficits; Z94.4 Liver transplant status; Z99.2 Dependence on renal dialysis; Z95.2 Presence of prosthetic heart valve; Z79.01 Long term (current) use of anticoagulants; Z79.82 Long term (current) use of aspirin; Z79.4 Long term (current) use of insulin; Z88.2 Allergy status to sulfonamides; Z88.8 Allergy status to other drugs, medicaments and biological substances
CPT/HCPCS: 36415; 74177; 80053; 83690; 83735; 85025; 85610; 96372; 96374; 99291; J1170; J2405; Q9967